=== PATIENT | female | born 1955 | race Caucasian/White ===

== ENCOUNTER → 2016-12-03 | Outpatient (CLI) | payer OTHER ==
--- NOTE | 2016-12-03 15:29 | US ---
EXAMINATION TYPE: US kidneys/renal and bladder DATE OF EXAM: 12/03/2016 COMPARISON: ct CLINICAL HISTORY: R80.9 Positive Urine Microalbumin. EXAM MEASUREMENTS: Right Kidney: 12.1 x 4.2 x 5.2 cm Left Kidney: 11.2 x 5.4 x 5.4 cm Right Kidney: No hydronephrosis or masses seen Left Kidney: No hydronephrosis or masses seen Lobular contour bilaterally , greater on the left. Bladder: wnl Bilateral Jets seen: Yes IMPRESSION: Normal renal ultrasound
== END | disposition home or self-care (01) ==
LOC: RADUSWWP 14:27
PROVIDERS: ATTEND Family Medicine
DX: R80.9 Proteinuria, unspecified (principal)
CPT/HCPCS: 76770

== ENCOUNTER → 2016-12-06 | Outpatient (CLI) | payer OTHER ==
--- NOTE | 2016-12-07 09:38 | MM ---
Reason for exam: screening (asymptomatic). History: Took hormonal contraceptives beginning at age 18. Physical Findings: A clinical breast exam by your physician is recommended on an annual basis and results should be correlated with mammographic findings. MG Screening Mammo w CAD Bilateral CC and MLO view(s) were taken. No prior studies available for comparison. There are scattered fibroglandular densities. Finding: There are typically benign round calcifications in the right breast. Benign small nodularity in the right breast. There is no discrete abnormality. ASSESSMENT: Benign, BI-RAD 2 RECOMMENDATION: Routine screening mammogram of both breasts in 1 year.
== END | disposition home or self-care (01) ==
LOC: RADMAMWWP 12:36
PROVIDERS: ATTEND Family Medicine
DX: Z12.31 Encounter for screening mammogram for malignant neoplasm of breast (principal)

== ENCOUNTER → 2017-12-22 | Outpatient (CLI) | payer OTHER ==
--- NOTE | 2017-12-26 10:41 | MM ---
Reason for exam: screening (asymptomatic). Last mammogram was performed 1 year and 1 month ago. History: Took hormonal contraceptives beginning at age 18. Physical Findings: A clinical breast exam by your physician is recommended on an annual basis and results should be correlated with mammographic findings. MG Screening Mammo w CAD Bilateral CC and MLO view(s) were taken. Prior study comparison: December 06, 2016, bilateral MG screening mammo w CAD. There are scattered fibroglandular densities. There are benign appearing round calcifications bilaterally. There is chronic nodularity in the right breast. There is no discrete abnormality. Benign bilateral axillary lymph nodes. ASSESSMENT: Benign, BI-RAD 2 RECOMMENDATION: Routine screening mammogram of both breasts in 1 year.
== END | disposition home or self-care (01) ==
LOC: RADMAMWWP 09:39
PROVIDERS: ATTEND Family Medicine
DX: Z12.31 Encounter for screening mammogram for malignant neoplasm of breast (principal)
CPT/HCPCS: 77067

== ENCOUNTER 2018-01-27 10:38 | Emergency (ER) | payer OTHER ==
[2018-01-27 10:43] VITALS: TEMP 97.9
[2018-01-27 11:09] LABS: Glucose,Whole Blood 153 mg/dL (75-99)
--- NOTE | 2018-01-27 11:09 | ED ---
General Adult HPI - General Chief complaint: Chest Pain Stated complaint: CHEST PAIN Time Seen by Provider: 01/27/18 10:51 Source: patient, RN notes reviewed, old records reviewed Mode of arrival: wheelchair Limitations: no limitations - History of Present Illness Initial comments: 62-year-old female presenting for evaluation of chest pain and dyspnea. Patient states that she woke with these symptoms, right-sided chest pain which is worse with deep inspiration. Patient describes as a sharp pain. Denies central chest pain. No history of CAD. Patient does have history of CVA with residual right hand numbness. Denies any new focal numbness or weakness today. Denies abdominal pain. She's had some nausea and vomiting. She also states that she's had some mild dyspnea. She has remote history of DVT and PE. She is not currently on anticoagulation, she is on Plavix for history of CVA. - Related Data Home Medications Medication Instructions Recorded Confirmed Aspirin 325 mg PO DAILY 11/15/14 01/27/18 Atorvastatin [Lipitor] 40 mg PO DAILY 11/15/14 01/27/18 Folic Acid 1 mg PO DAILY 11/15/14 01/27/18 Lisinopril 10 mg PO DAILY 11/15/14 01/27/18 metFORMIN HCL [Glucophage] 500 mg PO TID 11/15/14 01/27/18 Clopidogrel [Plavix] 75 mg PO DAILY 01/27/18 01/27/18 Insulin Glargine,Hum.rec.anlog 25 - 30 unit SQ HS 01/27/18 01/27/18 [Basaglar Kwikpen U-100] Latanoprost [Xalatan 0.005%] 1 drop LEFT EYE HS 01/27/18 01/27/18 Nitroglycerin Sl Tabs [Nitrostat] 0.4 mg SUBLINGUAL Q5M PRN 01/27/18 01/27/18 [place]-3 Fatty Acids/Fish Oil [Fish 1 cap PO DAILY 01/27/18 01/27/18 Oil 1,000 mg Softgel] Ubidecarenone [Co Q-10] 100 mg PO DAILY 01/27/18 01/27/18 Vortioxetine Hydrobromide 10 mg PO DAILY 01/27/18 01/27/18 [Trintellix] Allergies Allergy/AdvReac Type Severity Reaction Status Date / Time cephalexin monohydrate Allergy Rash/Hives Verified 01/27/18 11:23 [From Keflex] morphine AdvReac Unknown Verified 01/27/18 11:23 Penicillins AdvReac Nausea & Verified 01/27/18 11:23 Vomiting Review of Systems ROS Statement: Those systems with pertinent positive or pertinent negative responses have been documented in the HPI. ROS Other: All systems not noted in ROS Statement are negative. Past Medical History Past Medical History: CVA/TIA, Diabetes Mellitus, Hypertension, Pulmonary Embolus (PE) Additional Past Medical History / Comment(s): HIGH CHOLESTEROL, pancreatitis History of Any Multi-Drug Resistant Organisms: None Reported Past Surgical History: Hysterectomy Additional Past Surgical History / Comment(s): OVARIAN CYST REMOVED, VEIN STRIPPING Additional Past Anesthesia/Blood Transfusion Reaction / Comment(s): PROBLEMS WAKING UP POST ANESTHESIA Past Psychological History: No Psychological Hx Reported Smoking Status: Former smoker Past Alcohol Use History: None Reported Past Drug Use History: None Reported - Past Family History Mother Family Medical History: Cancer, Diabetes Mellitus Additional Family Medical History / Comment(s): LYMPHOMA Father Family Medical History: Unable to Obtain Sister(s) Family Medical History: Cancer, Diabetes Mellitus Additional Family Medical History / Comment(s): LYMPHOMA Brother(s) Family Medical History: No Reported History Son(s) Family Medical History: No Reported History General Exam Limitations: no limitations General appearance: alert, in no apparent distress Head exam: Present: atraumatic, normocephalic Eye exam: Present: normal appearance, PERRL, EOMI ENT exam: Present: normal exam Neck exam: Present: normal inspection. Absent: tenderness, meningismus Respiratory exam: Present: normal lung sounds bilaterally. Absent: respiratory distress Cardiovascular Exam: Present: regular rate, normal rhythm GI/Abdominal exam: Present: soft. Absent: distended, tenderness Extremities exam: Present: normal inspection, calf tenderness (Bilateral calf tenderness to palpation). Absent: pedal edema Neurological exam: Present: alert, oriented X3, CN II-XII intact, motor sensory deficit (Residual left hand numbness from previous CVA) Psychiatric exam: Present: normal affect, normal mood Skin exam: Present: warm, dry, intact. Absent: cyanosis, diaphoretic Course Vital Signs 01/27/18 01/27/18 10:41 11:10 Temperature 97.9 F Pulse Rate 69 Pulse Rate [ 69 [employer]ice ] Respiratory 18 Rate Blood Pressure 160/83 O2 Sat by Pulse 98 Oximetry EKG Findings - EKG Comments: EKG Findings:: EKG normal sinus rhythm, left axis deviation, rate of 71, DC interval 140, QRS duration 90, QTC [address] segment elevation or depression Medical Decision Making - Medical Decision Making 62-year-old female presenting for evaluation of right-sided chest pain. Pain is pleuritic in nature, worse with deep inspiration and patient does have history of PE. EKG does not show any acute signs of ischemia, pain is atypical and not concerning for ACS. Chest x-ray obtained, negative for acute cardiopulmonary disease, CBC is normal with stable hemoglobin, troponin is negative, CMP within normal limits. CT angiography is obtained given the pleuritic nature and history of PE. This is negative for pulmonary embolism, no acute findings. Patient is reassured. She is offered observation for continued evaluation of her chest pain, she declines. She will take anti-inflammatories at home. She is discharged from the emergency department in stable condition. - Lab Data Result diagrams: 01/27/18 10:40 01/27/18 10:40 Lab Results 01/27/18 01/27/18 01/27/18 Range/Units 10:40 10:40 10:40 WBC 10.7 H (3.8-10.6) k/uL RBC 4.97 (3.80-5.40) m/uL Hgb 14.5 (11.4-16.0) gm/dL Hct 43.9 (34.0-46.0) % MCV 88.3 (80.0-100.0) fL MCH 29.2 (25.0-35.0) pg MCHC 33.1 (31.0-37.0) g/dL RDW 13.5 (11.5-15.5) % Plt Count 325 (150-450) k/uL Neutrophils % 63 % Lymphocytes % 30 % Monocytes % 4 % Eosinophils % 1 % Basophils % 1 % Neutrophils # 6.8 (1.3-7.7) k/uL Lymphocytes # 3.3 (1.0-4.8) k/uL Monocytes # 0.4 (0-1.0) k/uL Eosinophils # 0.1 (0-0.7) k/uL Basophils # 0.1 (0-0.2) k/uL PT (9.0-12.0) sec INR (<1.2) APTT (22.0-30.0) sec Sodium 140 (137-145) mmol/L Potassium 4.7 (3.5-5.1) mmol/L Chloride 106 (98-107) mmol/L Carbon Dioxide 26 (22-30) mmol/L Anion Gap 8 mmol/L BUN 13 (7-17) mg/dL Creatinine 0.61 (0.52-1.04) mg/dL Est GFR (CKD-EPI)AfAm >90 (>60 ml/min/1.73 sqM) Est GFR (CKD-EPI)NonAf >90 (>60 ml/min/1.73 sqM) Glucose 175 H (74-99) mg/dL POC Glucose (mg/dL) (75-99) mg/dL POC Glu Flumer ID Calcium 10.1 (8.4-10.2) mg/dL Magnesium 1.8 (1.6-2.3) mg/dL Total Bilirubin 0.6 (0.2-1.3) mg/dL AST 33 (14-36) U/L ALT 38 (9-52) U/L Alkaline Phosphatase 150 H (38-126) U/L Total Creatine Kinase 48 (30-135) U/L CK-MB (CK-2) 0.3 (0.0-2.4) ng/mL CK-MB (CK-2) Rel Index 0.6 Troponin I <0.012 (0.000-0.034) ng/mL Total Protein 7.8 (6.3-8.2) g/dL Albumin 4.3 (3.5-5.0) g/dL 01/27/18 01/27/18 Range/Units 10:40 10:48 WBC (3.8-10.6) k/uL RBC (3.80-5.40) m/uL Hgb (11.4-16.0) gm/dL Hct (34.0-46.0) % MCV (80.0-100.0) fL MCH (25.0-35.0) pg MCHC (31.0-37.0) g/dL RDW (11.5-15.5) % Plt Count (150-450) k/uL Neutrophils % % Lymphocytes % % Monocytes % % Eosinophils % % Basophils % % Neutrophils # (1.3-7.7) k/uL Lymphocytes # (1.0-4.8) k/uL Monocytes # (0-1.0) k/uL Eosinophils # (0-0.7) k/uL Basophils # (0-0.2) k/uL PT 10.0 (9.0-12.0) sec INR 1.0 (<1.2) APTT 22.6 (22.0-30.0) sec Sodium (137-145) mmol/L Potassium (3.5-5.1) mmol/L Chloride (98-107) mmol/L Carbon Dioxide (22-30) mmol/L Anion Gap mmol/L BUN (7-17) mg/dL Creatinine (0.52-1.04) mg/dL Est GFR (CKD-EPI)AfAm (>60 ml/min/1.73 sqM) Est GFR (CKD-EPI)NonAf (>60 ml/min/1.73 sqM) Glucose (74-99) mg/dL POC Glucose (mg/dL) 153 H (75-99) mg/dL POC Glu Flumer ID Lydia Clemens Calcium (8.4-10.2) mg/dL Magnesium (1.6-2.3) mg/dL Total Bilirubin (0.2-1.3) mg/dL AST (14-36) U/L ALT (9-52) U/L Alkaline Phosphatase (38-126) U/L Total Creatine Kinase (30-135) U/L CK-MB (CK-2) (0.0-2.4) ng/mL CK-MB (CK-2) Rel Index Troponin I (0.000-0.034) ng/mL Total Protein (6.3-8.2) g/dL Albumin (3.5-5.0) g/dL Disposition Clinical Impression: Atypical chest pain Disposition: HOME SELF-CARE Condition: Good Instructions: Chest Pain (ED) Is patient prescribed a controlled substance at d/c from ED?: No Referrals: Mary Ann Winter MD [STAFF PHYSICIAN] - 1-2 days Time of Disposition: 13:11
[2018-01-27 11:37] LABS: Basophils # (A) 0.1 k/uL (0-0.2); Basophils % (A) 1 %; Eosinophils # (A) 0.1 k/uL (0-0.7); Eosinophils % (A) 1 %; HCT 43.9 % (34.0-46.0); HGB 14.5 gm/dL (11.4-16.0); Lymphocytes # (A) 3.3 k/uL (1.0-4.8); Lymphocytes % (A) 30 %; MCH 29.2 pg (25.0-35.0); MCHC 33.1 g/dL (31.0-37.0); MCV 88.3 fL (80.0-100.0); Mean Platelet Volume 7.6; Monocytes # (A) 0.4 k/uL (0-1.0); Monocytes % (A) 4 %; Neutrophils # (A) 6.8 k/uL (1.3-7.7); Neutrophils % (A) 63 %; Platelet Count 325 k/uL (150-450); RBC 4.97 m/uL (3.80-5.40); RDW 13.5 % (11.5-15.5); WBC 10.7 k/uL (3.8-10.6)
[2018-01-27] MEDS ORDERED: HYDROmorphone 0.5 MG/0.5 ML SYRINGE IVP STA (11:38)
[2018-01-27 11:44] LABS: ALT 38 U/L (9-52); AST 33 U/L (14-36); Albumin 4.3 g/dL (3.5-5.0); Alkaline Phosphatase 150 U/L (38-126); Anion Gap 8 mmol/L; Blood Urea Nitrogen 13 mg/dL (7-17); Calcium 10.1 mg/dL (8.4-10.2); Carbon Dioxide 26 mmol/L (22-30); Chloride 106 mmol/L (98-107); Glucose 175 mg/dL (74-99); Magnesium 1.8 mg/dL (1.6-2.3); Potassium 4.7 mmol/L (3.5-5.1); Sodium 140 mmol/L (137-145); Total Bilirubin 0.6 mg/dL (0.2-1.3); Total Protein 7.8 g/dL (6.3-8.2)
[2018-01-27 11:57] LABS: Creatine Kinase 48 U/L (30-135)
[2018-01-27 12:09] LABS: Creatine Kinase MB 0.3 ng/mL (0.0-2.4); Troponin I <0.012 ng/mL (0.000-0.034)
[2018-01-27 12:14] LABS: Partial Thromboplastin Time 22.6 sec (22.0-30.0)
--- NOTE | 2018-01-27 12:20 | XR ---
EXAMINATION TYPE: XR chest 2V DATE OF EXAM: 01/27/2018 COMPARISON: 02/11/2013 HISTORY: Shortness of breath TECHNIQUE: Frontal and lateral views of the chest are obtained. FINDINGS: Scattered senescent parenchymal changes noted. No evidence for infiltrate. No evidence for atelectasis. Heart size is stable. Mediastinal structures are stable and grossly unremarkable. No evidence for hilar prominence. Degenerative changes dorsal spine. IMPRESSION: 1. No evidence for acute pulmonary disease.
--- NOTE | 2018-01-27 12:36 | CT ---
EXAMINATION TYPE: CT angio chest DATE OF EXAM: 01/27/2018 COMPARISON: 10/14/2015 HISTORY: Right chest pain. CT DLP: 325.8 mGycm CONTRAST: CT chest with contrast and 3D reconstruction with MIP imaging is performed with IV Contrast, patient injected with 58 mL of Isovue 370. Contrast-enhanced CT of the chest was performed through the course of the pulmonary arteries with katelin g and mediastinal window settings submitted. 3D reconstruction with MIP imaging was also performed. PULMONARY ARTERIES: The pulmonary arteries and their major tributaries are patent. I do not see reva dence for sizable filling defect to suggest pulmonary embolic process. LUNGS: The lungs are clear and free of infiltrate. No evidence for atelectasis. No pulmonary nodule or mass is detected. No pleural effusion. MEDIASTINUM: Thoracic aorta is of normal caliber,however, evaluation is limited given timing of the contrast bolus. If there is concern for thoracic aortic pathology consider SANTOS. Correlate clinicall y . The heart is not enlarged. No evidence for mediastinal mass. No mediastinal lymph nodes greater than 1cm. HILAR STRUCTURES: No evidence for mass. No hilar lymph nodes greater than 1 cm. UPPER ABDOMEN: No significant abnormality is seen. IMPRESSION: 1. No evidence for Pulmonary embolism at this time.
[2018-01-27 13:05] VITALS: PULSE 65
[2018-01-27 13:06] VITALS: BP 141/75; RESP 16
== END 2018-01-27 13:23 | disposition home or self-care (01) ==
LOC: EC 10:38
DX: R07.89 Other chest pain (principal); R06.00 Dyspnea, unspecified; R11.2 Nausea with vomiting, unspecified; E11.9 Type 2 diabetes mellitus without complications; I10 Essential (primary) hypertension; E78.00 Pure hypercholesterolemia, unspecified; Z86.711 Personal history of pulmonary embolism; Z86.718 Personal history of other venous thrombosis and embolism; Z86.73 Personal history of transient ischemic attack (TIA), and cerebral infarction without residual deficits; Z87.891 Personal history of nicotine dependence; Z79.82 Long term (current) use of aspirin; Z79.02 Long term (current) use of antithrombotics/antiplatelets; Z79.4 Long term (current) use of insulin; Z79.899 Other long term (current) drug therapy; Z88.1 Allergy status to other antibiotic agents; Z88.5 Allergy status to narcotic agent; Z88.0 Allergy status to penicillin; Z53.29 Procedure and treatment not carried out because of patient's decision for other reasons
CPT/HCPCS: 36415; 93005; 80053; 82550; 82553; 83735; 84484; 85025; 85610; 85730; 71046; 71275; 99285; 96374; J1170; Q9967

== ENCOUNTER → 2018-09-20 | Outpatient (CLI) | payer OTHER | END | disposition home or self-care (01) | LOC: LABWHC1 11:18 | PROVIDERS: ATTEND Nurse Practitioner Family | DX: M79.622 Pain in left upper arm (principal); M79.89 Other specified soft tissue disorders; L98.9 Disorder of the skin and subcutaneous tissue, unspecified | CPT/HCPCS: 36415; 82565; 84520 ==

== ENCOUNTER 2018-12-15 09:15 | Observation (INO) | payer OTHER ==
[2018-12-15 09:19] VITALS: TEMP 98.1
[2018-12-15] MEDS ORDERED: ONDANSETRON 4 MG/2 ML VIAL IVP STA (09:48)
[2018-12-15] MEDS ORDERED: LORazepam 2 MG/ML INJ IV STA (09:48)
[2018-12-15] MEDS ORDERED: SODIUM CHLORIDE 0.9% 500 ML 500 ML IV STA (09:48)
--- NOTE | 2018-12-15 09:56 | ED ---
General Adult HPI - General Chief complaint: Shortness of Breath Stated complaint: Weakness Time Seen by Provider: 12/15/18 09:20 Source: patient, family, RN notes reviewed Mode of arrival: ambulatory Limitations: no limitations - History of Present Illness Initial comments: This is a 63-year-old female with past month history significant for stroke. P shirley has some sided residual. Patient comes in this morning because when she woke up she was having dry heaves and shortly thereafter she started getting tingling in her lips on both sides of her face she then became lightheaded and felt like she was breathing fast. So she was brought to the emergency department because she was concerned that she may be having another stroke. Patient denies any new weakness or any areas of actual numbness. Patient denies any chest pain. Patient denies any current difficulty breathing though she continues to breathe fast. Patient denies any abdominal pain but does remain nauseated. Patient has not vomited or had any diarrhea. Patient has had no headache. Patient denies any chest pain or shortness of breath. Patient denies any recent fever chills. - Related Data Home Medications Medication Instructions Recorded Confirmed Aspirin 325 mg PO DAILY 11/15/14 12/15/18 Atorvastatin [Lipitor] 40 mg PO HS 11/15/14 12/15/18 Folic Acid 1 mg PO DAILY 11/15/14 12/15/18 Lisinopril 10 mg PO DAILY 11/15/14 12/15/18 metFORMIN HCL [Glucophage] 500 mg PO TID 11/15/14 12/15/18 Clopidogrel [Plavix] 75 mg PO DAILY 01/27/18 12/15/18 Insulin Glargine,Hum.rec.anlog 25 - 30 unit SQ HS 01/27/18 12/15/18 [Basaglar Kwikpen U-100] Latanoprost [Xalatan 0.005%] 1 drop LEFT EYE HS 01/27/18 12/15/18 Nitroglycerin Sl Tabs [Nitrostat] 0.4 mg SUBLINGUAL Q5M PRN 01/27/18 12/15/18 [place]-3 Fatty Acids/Fish Oil [Fish 1 cap PO DAILY 01/27/18 12/15/18 Oil 1,000 mg Softgel] Ubidecarenone [Co Q-10] 100 mg PO DAILY 01/27/18 12/15/18 Amitriptyline HCl [Elavil] 12.5 mg PO HS 12/15/18 12/15/18 Allergies Allergy/AdvReac Type Severity Reaction Status Date / Time cephalexin monohydrate Allergy Rash/Hives Verified 12/15/18 09:32 [From Keflex] morphine AdvReac Unknown Verified 12/15/18 09:32 Penicillins AdvReac Nausea & Verified 12/15/18 09:32 Vomiting Review of Systems ROS Statement: Those systems with pertinent positive or pertinent negative responses have been documented in the HPI. ROS Other: All systems not noted in ROS Statement are negative. Past Medical History Past Medical History: CVA/TIA, Diabetes Mellitus, Hypertension, Pulmonary E mbolus (PE) Additional Past Medical History / Comment(s): HIGH CHOLESTEROL, pancreatitis History of Any Multi-Drug Resistant Organisms: None Reported Past Surgical History: Hysterectomy Additional Past Surgical History / Comment(s): OVARIAN CYST REMOVED, VEIN STRIPPING Additional Past Anesthesia/Blood Transfusion Reaction / Comment(s): PROBLEMS WAKING UP POST ANESTHESIA Past Psychological History: No Psychological Hx Reported Smoking Status: Former smoker Past Alcohol Use History: None Reported Past Drug Use History: None Reported - Past Family History Mother Family Medical History: Cancer, Diabetes Mellitus Additional Family Medical History / Comment(s): LYMPHOMA Father Family Medical History: Unable to Obtain Sister(s) Family Medical History: Cancer, Diabetes Mellitus Additional Family Medical History / Comment(s): LYMPHOMA Brother(s) Family Medical History: No Reported History Son(s) Family Medical History: No Reported History General Exam - General Exam Comments Initial Comments: GENERAL: Patient is well-developed and well-nourished. Patient is nontoxic and well- hydrated and is in no acute distress. ENT: Neck is soft and supple. No significant lymphadenopathy is noted. Oropharynx is clear. Moist mucous membranes. Neck has full range of motion without eliciting any pain. EYES: The sclera were anicteric and conjunctiva were pink and moist. Extraocular movements were intact and pupils were equal round and reactive to light. Eyelids were unremarkable. PULMONARY: Unlabored respirations. Good breath sounds bilaterally. No audible rales rho nchi or wheezing was noted. CARDIOVASCULAR: There is a regular rate and rhythm without any murmurs gallops or rubs. ABDOMEN: Soft and nontender with normal bowel sounds. No palpable organomegaly was noted. There is no palpable pulsatile mass. SKIN: Skin is clear with no lesions or rashes and otherwise unremarkable. NEUROLOGIC: Patient is alert and oriented x3. Cranial nerves II through XII are grossly intact. Motor and sensory are also intact. Normal speech, volume and content. Symmetrical smile. MUSCULOSKELETAL: Normal extremities with adequate strength and full range of motion. No lower extremity swelling or edema. No calf tenderness. LYMPHATICS: No significant lymphadenopathy is noted PSYCHIATRIC: Normal psychiatric evaluation. Normal interpersonal interactions appears functionally intact in deals appropriately with others. No signs of depression. No signs of anxiety. Limitations: no limitations Course Vital Signs 12/15/18 09:17 Temperature 98.1 F Pulse Rate 84 Respiratory 16 Rate Blood Pressure 199/92 O2 Sat by Pulse 100 Oximetry Medical Decision Making - Medical Decision Making EKG shows sinus rhythm with occasional PVC at 86 bpm NV interval 146 dresses 92 QT interval 390. Patient's EKG shows no ST segment elevation or depression. Chest x-ray shows no acute abnormality CT of the head shows no acute abnormality. I will back into the room she still remained nauseated and was now complaining of some tingling sensation in her left foot. There was no loss of sensation or strength however. - Lab Data Result diagrams: 12/15/18 10:10 12/15/18 10:10 Lab Results 12/15/18 12/15/18 12/15/18 Range/Units 10:10 10:10 10:10 WBC 10.4 (3.8-10.6) k/uL RBC 4.54 (3.80-5.40) m/uL Hgb 13.2 (11.4-16.0) gm/dL Hct 39.7 (34.0-46.0) % MCV 87.5 (80.0-100.0) fL MCH 29.2 (25.0-35.0) pg MCHC 33.3 (31.0-37.0) g/dL RDW 15.2 (11.5-15.5) % Plt Count 358 (150-450) k/uL Neutrophils % 58 % Lymphocytes % 35 % Monocytes % 3 % Eosinophils % 2 % Basophils % 1 % Neutrophils # 6.0 (1.3-7.7) k/uL Lymphocytes # 3.6 (1.0-4.8) k/uL Monocytes # 0.3 (0-1.0) k/uL Eosinophils # 0.2 (0-0.7) k/uL Basophils # 0.1 (0-0.2) k/uL PT 9.8 (9.0-12.0) sec INR 0.9 (<1.2) APTT 23.0 (22.0-30.0) sec Sodium 141 (137-145) mmol/L Potassium 3.9 (3.5-5.1) mmol/L Chloride 108 H (98-107) mmol/L Carbon Dioxide 23 (22-30) mmol/L Anion Gap 10 mmol/L BUN 9 (7-17) mg/dL Creatinine 0.60 (0.52-1.04) mg/dL Est GFR (CKD-EPI)AfAm >90 (>60 ml/min/1.73 sqM) Est GFR (CKD-EPI)NonAf >90 (>60 ml/min/1.73 sqM) Glucose 223 H (74-99) mg/dL Calcium 10.1 (8.4-10.2) mg/dL Total Bilirubin 0.5 (0.2-1.3) mg/dL AST 27 (14-36) U/L ALT 33 (9-52) U/L Alkaline Phosphatase 111 (38-126) U/L Troponin I (0.000-0.034) ng/mL Total Protein 7.6 (6.3-8.2) g/dL Albumin 4.2 (3.5-5.0) g/dL 12/15/18 Range/Units 10:10 WBC (3.8-10.6) k/uL RBC (3.80-5.40) m/uL Hgb (11.4-16.0) gm/dL Hct (34.0-46.0) % MCV (80.0-100.0) fL MCH (25.0-35.0) pg MCHC (31.0-37.0) g/dL RDW (11.5-15.5) % Plt Count (150-450) k/uL Neutrophils % % Lymphocytes % % Monocytes % % Eosinophils % % Basophils % % Neutrophils # (1.3-7.7) k/uL Lymphocytes # (1.0-4.8) k/uL Monocytes # (0-1.0) k/uL Eosinophils # (0-0.7) k/uL Basophils # (0-0.2) k/uL PT (9.0-12.0) sec INR (<1.2) APTT (22.0-30.0) sec Sodium (137-145) mmol/L Potassium (3.5-5.1) mmol/L Chloride (98-107) mmol/L Carbon Dioxide (22-30) mmol/L Anion Gap mmol/L BUN (7-17) mg/dL Creatinine (0.52-1.04) mg/dL Est GFR (CKD-EPI)AfAm (>60 ml/min/1.73 sqM) Est GFR (CKD-EPI)NonAf (>60 ml/min/1.73 sqM) Glucose (74-99) mg/dL Calcium (8.4-10.2) mg/dL Total Bilirubin (0.2-1.3) mg/dL AST (14-36) U/L ALT (9-52) U/L Alkaline Phosphatase (38-126) U/L Troponin I <0.012 (0.000-0.034) ng/mL Total Protein (6.3-8.2) g/dL Albumin (3.5-5.0) g/dL Disposition Clinical Impression: Paresthesias, Nausea Disposition: ADMITTED IP TO THIS HOSP Referrals: Melody Mosley MD [Primary Care Provider] - 1-2 days Time of Disposition: 12:28
[2018-12-15 10:25] LABS: Basophils # (A) 0.1 k/uL (0-0.2); Basophils % (A) 1 %; Eosinophils # (A) 0.2 k/uL (0-0.7); Eosinophils % (A) 2 %; HCT 39.7 % (34.0-46.0); HGB 13.2 gm/dL (11.4-16.0); Lymphocytes # (A) 3.6 k/uL (1.0-4.8); Lymphocytes % (A) 35 %; MCH 29.2 pg (25.0-35.0); MCHC 33.3 g/dL (31.0-37.0); MCV 87.5 fL (80.0-100.0); Monocytes # (A) 0.3 k/uL (0-1.0); Monocytes % (A) 3 %; Neutrophils % (A) 58 %; Platelet Count 358 k/uL (150-450); RBC 4.54 m/uL (3.80-5.40); RDW 15.2 % (11.5-15.5); WBC 10.4 k/uL (3.8-10.6)
[2018-12-15 10:30] LABS: INR 0.9 (<1.2); Prothrombin Time 9.8 sec (9.0-12.0)
[2018-12-15 10:32] LABS: ALT 33 U/L (9-52); AST 27 U/L (14-36); African American GFR (CKD) >90 (>60 ml/min/1.73 sqM); Albumin 4.2 g/dL (3.5-5.0); Alkaline Phosphatase 111 U/L (38-126); Anion Gap 10 mmol/L; Blood Urea Nitrogen 9 mg/dL (7-17); Calcium 10.1 mg/dL (8.4-10.2); Carbon Dioxide 23 mmol/L (22-30); Chloride 108 mmol/L (98-107); Glucose 223 mg/dL (74-99); Potassium 3.9 mmol/L (3.5-5.1); Sodium 141 mmol/L (137-145); Total Bilirubin 0.5 mg/dL (0.2-1.3); Total Protein 7.6 g/dL (6.3-8.2)
--- NOTE | 2018-12-15 10:33 | XR ---
EXAMINATION TYPE: XR chest 2V DATE OF EXAM: 12/15/2018 COMPARISON: 01/19/2018 HISTORY: Altered mental status TECHNIQUE: Frontal and lateral views of the chest are obtained. FINDINGS: There is no focal air space opacity, pleural effusion, or pneumothorax seen. The cardiac silhouette size is within normal limits. The osseous structures are intact. Mild multilevel degener ative changes of the thoracic spine. IMPRESSION: No acute cardiopulmonary process.
--- NOTE | 2018-12-15 10:41 | CT ---
EXAMINATION TYPE: CT brain wo con DATE OF EXAM: 12/15/2018 COMPARISON: CT brain 11/15/2014 HISTORY: Left hand tingling and dizziness, history of stroke, neuro deficits. CT DLP: 1103.4 mGycm Automated exposure control for dose reduction was used. Helical imaging through the brain. FINDINGS: There is no evident hemorrhage or hydrocephalus. Brain density shows a stable appearance, there is so me White matter low-attenuation present in the periventricular location. The calvarium is intact. IMPRESSION: STABLE EXAM, NONSPECIFIC WHITE MATTER DEMYELINATION. NO ACUTE ABNORMALITY EVIDENT. CONSIDER MRI IN DICATED.
[2018-12-15] MEDS ORDERED: ASPIRIN 325 MG TAB PO STA (12:29)
[2018-12-15] MEDS ORDERED: METOCLOPRAMIDE 5 MG/ML 2 ML VIAL IVP STA (12:29)
[2018-12-15 15:12] VITALS: BP 132/68; PULSE 78; RESP 18
[2018-12-16] MEDS ORDERED: ASPIRIN 325 MG TAB PO SCH (09:00)
--- NOTE | 2018-12-22 09:27 | HP ---
HISTORY AND PHYSICAL HISTORY AND PHYSICAL AND DISCHARGE SUMMARY CHIEF COMPLAINTS: Paresthesia, nausea. HISTORY OF PRESENT ILLNESS: This 63-year-old woman with a past medical history of multiple medical problems was admitted with paresthesia and nausea. Patient follows with Dr. Melody Mosley in the outpatient setting, but however before being evaluated, the patient left the hospital AGAINST MEDICAL ADVICE from the ER itself. Please refer to staff notes and ER notes for further information. FINAL DIAGNOSIS: Paresthesia, weakness for evaluation. MMODL / IJN: [id number] /
== END 2018-12-15 13:45 | disposition left against medical advice (07) ==
LOC: EC 09:15 → 3SCARD 12:29
PROVIDERS: ADMIT Hospitalist; ATTEND Hospitalist
DX: R20.2 Paresthesia of skin (principal); R11.0 Nausea; R53.1 Weakness; E11.9 Type 2 diabetes mellitus without complications; E78.00 Pure hypercholesterolemia, unspecified; I10 Essential (primary) hypertension; I49.3 Ventricular premature depolarization; Z79.02 Long term (current) use of antithrombotics/antiplatelets; Z79.82 Long term (current) use of aspirin; Z86.711 Personal history of pulmonary embolism; Z86.73 Personal history of transient ischemic attack (TIA), and cerebral infarction without residual deficits; Z87.891 Personal history of nicotine dependence; Z90.710 Acquired absence of both cervix and uterus; Z80.7 Family history of other malignant neoplasms of lymphoid, hematopoietic and related tissues; Z83.3 Family history of diabetes mellitus
CPT/HCPCS: 96374; 96375; 99285; 36415; 80053; 84484; 85025; 85610; 85730; 71046; 70450; G0378; J2060; J2765; J2405

== ENCOUNTER 2019-02-12 14:06 | Emergency (ER) | payer OTHER ==
[2019-02-12 14:27] VITALS: RESP 18; TEMP 97.9
[2019-02-12] MEDS ORDERED: MORPHINE SULFATE 4 MG/ML SYRINGE IV STA (14:47)
[2019-02-12 15:18] LABS: Basophils # (A) 0.1 k/uL (0-0.2); Basophils % (A) 1 %; Eosinophils # (A) 0.2 k/uL (0-0.7); Eosinophils % (A) 2 %; HCT 39.2 % (34.0-46.0); HGB 13.1 gm/dL (11.4-16.0); Lymphocytes # (A) 3.2 k/uL (1.0-4.8); Lymphocytes % (A) 33 %; MCH 29.9 pg (25.0-35.0); MCHC 33.4 g/dL (31.0-37.0); MCV 89.6 fL (80.0-100.0); Mean Platelet Volume 6.9; Monocytes # (A) 0.5 k/uL (0-1.0); Monocytes % (A) 5 %; Neutrophils # (A) 5.7 k/uL (1.3-7.7); Neutrophils % (A) 58 %; Platelet Count 312 k/uL (150-450); RBC 4.37 m/uL (3.80-5.40); RDW 13.3 % (11.5-15.5); WBC 9.8 k/uL (3.8-10.6)
[2019-02-12 15:24] LABS: Appearance,Urine Clear (Clear); Bilirubin,Urine Negative (Negative); Blood,Urine Negative (Negative); Color,Urine Light Yellow; Glucose,Urine (UA) Negative (Negative); Ketones,Urine Negative (Negative); Leukocyte Esterase,Urine Negative (Negative); Nitrite,Urine Negative (Negative); PH, Urine 7.5 (5.0-8.0); Protein,Urine Negative (Negative); Specific Gravity,Urine 1.011 (1.001-1.035)
[2019-02-12 15:26] LABS: INR 0.9 (<1.2); Prothrombin Time 9.8 sec (9.0-12.0)
[2019-02-12 15:28] LABS: ALT 26 U/L (9-52); AST 23 U/L (14-36); African American GFR (CKD) >90 (>60 ml/min/1.73 sqM); Albumin 4.1 g/dL (3.5-5.0); Alkaline Phosphatase 142 U/L (38-126); Anion Gap 9 mmol/L; Blood Urea Nitrogen 9 mg/dL (7-17); Calcium 9.7 mg/dL (8.4-10.2); Carbon Dioxide 27 mmol/L (22-30); Chloride 104 mmol/L (98-107); Glucose 163 mg/dL (74-99); Sodium 140 mmol/L (137-145); Total Bilirubin 0.2 mg/dL (0.2-1.3); Total Protein 7.3 g/dL (6.3-8.2)
--- NOTE | 2019-02-12 16:11 | CT ---
EXAMINATION TYPE: CT abdomen pelvis w con DATE OF EXAM: 02/12/2019 COMPARISON: 09/13/2014 INDICATION: LLQ pain. DLP: 1602.7 mGycm, Automated exposure control for dose reduction was used. CONTRAST: 100 mL of Isovue 300. Study performed without Oral Contrast TECHNIQUE: Axial images were obtained from above the diaphragm to the pubic rami in the axial plane a t 5 mm thick sections. Reconstructed images are reviewed on the computer in the coronal plane. FINDINGS: Limited CT sections are obtained the lung bases. The lung bases are clear. CT ABDOMEN: Liver: Normal Spleen: Normal Pancreas: Normal Adrenal glands: The adrenal glands are normal. Gallbladder: Normal Kidneys: No masses are evident. No hydronephrosis is present. No cysts are present. Delayed images were obtained through the kidneys, which remain unremarkable. Aorta: Vascular calcification is within the aorta. Inferior vena cava: Normal. CT PELVIS: Loops of bowel within the abdomen and pelvis are normal. Study is performed without oral contrast . Appendix: Identified Urinary bladder: Normal. Genitourinary structures: Uterus and ovaries are not identified. Osseous structures: No suspicious lytic or sclerotic lesions. IMPRESSIONS: 1. No suspicious acute abnormality. No suspicious changes suggest acute diverticulitis. The cecum ma y be a wandering cecum with the cecum currently located in the midabdomen
--- NOTE | 2019-02-12 16:48 | ED ---
Abdominal Pain HPI - General Chief Complaint: Abdominal Pain Stated Complaint: Abd Pain Source: patient Mode of arrival: ambulatory Limitations: no limitations - History of Present Illness Initial Comments: The patient is a 63-year-old female with past medical history of A. fib who presents emergency room with reported abdominal pain. She states that she was straining today to have a bowel movement. She did feel a pop in her anterior abdomen. She then had excruciating pain afterwards. She is on Plavix for previous history of CVAs. She was concerned that she may have "ruptured blood vessel" and therefore she presented to the emergency room for evaluation. Does report to a history of chronic constipation. She does take Zofran and tramadol for left shoulder pain. States when she takes his medications that it does cause her to have hard stools. She denies any black or melanotic stools. Denies diarrhea. Denies any changes in her urination to include dysuria, h ematuria or difficulty voiding. Denies any abnormal vaginal bleeding or discharge. No back or flank pain. No pain into her lower extremity's. No fevers or chills. There are no alleviating, precipitating or modifying factors - Related Data Home Medications Medication Instructions Recorded Confirmed Atorvastatin [Lipitor] 40 mg PO DAILY 11/15/14 02/12/19 metFORMIN HCL [Glucophage] 500 mg PO TID 11/15/14 02/12/19 Clopidogrel [Plavix] 75 mg PO DAILY 01/27/18 02/12/19 Insulin Glargine,Hum.rec.anlog 45 unit SQ HS 01/27/18 02/12/19 [Basaglar Kwikpen U-100] Ubidecarenone [Co Q-10] 200 mg PO DAILY 01/27/18 02/12/19 Aspirin EC [Ecotrin] 325 mg PO DAILY 02/12/19 02/12/19 Folic Acid 0.2 mg PO DAILY 02/12/19 02/12/19 Allergies Allergy/AdvReac Type Severity Reaction Status Date / Time cephalexin monohydrate Allergy Rash/Hives Verified 02/12/19 14:37 [From Keflex] morphine Allergy Rash/Hives Verified 02/12/19 14:37 Penicillins Allergy Rash/Hives Verified 02/12/19 14:37 Review of Systems ROS Statement: Those systems with pertinent positive or pertinent negative responses have been documented in the HPI. ROS Other: All systems not noted in ROS Statement are negative. Past Medical History Past Medical History: CVA/TIA, Diabetes Mellitus, Hypertension, Pulmonary Embolus (PE) Additional Past Medical History / Comment(s): HIGH CHOLESTEROL, pancreatitis History of Any Multi-Drug Resistant Organisms: None Reported Past Surgical History: Hysterectomy Additional Past Surgical History / Comment(s): OVARIAN CYST REMOVED, VEIN STRIPPING Additional Past Anesthesia/Blood Transfusion Reaction / Comment(s): PROBLEMS WAKING UP POST ANESTHESIA Past Psychological History: No Psychological Hx Reported Smoking Status: Former smoker Past Alcohol Use History: None Reported Past Drug Use History: None Reported - Past Family History Mother Family Medical History: Cancer, Diabetes Mellitus Additional Family Medical History / Comment(s): LYMPHOMA Father Family Medical History: Unable to Obtain Sister(s) Family Medical History: Cancer, Diabetes Mellitus Additional Family Medical History / Comment(s): LYMPHOMA Brother(s) Family Medical History: No Reported History Son(s) Family Medical History: No Reported History General Exam Limitations: no limitations Course Vital Signs 02/12/19 02/12/19 14:22 17:19 Temperature 97.9 F 97.9 F Pulse Rate 73 76 Respiratory 18 18 Rate Blood Pressure 145/72 114/56 O2 Sat by Pulse 99 98 Oximetry Medical Decision Making - Medical Decision Making Upon arrival the patient is placed into room 8. A thorough history and physical exam was performed. Peripheral IV is established. Laboratory studies were conducted the patient was sent for a CT of her abdomen and pelvis. Laboratory studies are unremarkable. CT of abdomen and pelvis demonstrates no acute findings. Urinalysis is clean. I did discuss these results with the patient. She will be discharged home at this time. She is to take a stool softener as needed for constipation. She is to follow up with her primary care physician within 2-4 days. If she has any new or worsening symptoms she should return to the emergency room. The patient was discharged home in stable condition - Lab Data Result diagrams: 02/12/19 15:05 02/12/19 15:05 Lab Results 02/12/19 02/12/19 02/12/19 Range/Units 15:05 15:05 15:05 WBC 9.8 (3.8-10.6) k/uL RBC 4.37 (3.80-5.40) m/uL Hgb 13.1 (11.4-16.0) gm/dL Hct 39.2 (34.0-46.0) % MCV 89.6 (80.0-100.0) fL MCH 29.9 (25.0-35.0) pg MCHC 33.4 (31.0-37.0) g/dL RDW 13.3 (11.5-15.5) % Plt Count 312 (150-450) k/uL Neutrophils % 58 % Lymphocytes % 33 % Monocytes % 5 % Eosinophils % 2 % Basophils % 1 % Neutrophils # 5.7 (1.3-7.7) k/uL Lymphocytes # 3.2 (1.0-4.8) k/uL Monocytes # 0.5 (0-1.0) k/uL Eosinophils # 0.2 (0-0.7) k/uL Basophils # 0.1 (0-0.2) k/uL PT (9.0-12.0) sec INR (<1.2) Sodium 140 (137-145) mmol/L Potassium 4.0 (3.5-5.1) mmol/L Chloride 104 (98-107) mmol/L Carbon Dioxide 27 (22-30) mmol/L Anion Gap 9 mmol/L BUN 9 (7-17) mg/dL Creatinine 0.60 (0.52-1.04) mg/dL Est GFR (CKD-EPI)AfAm >90 (>60 ml/min/1.73 sqM) Est GFR (CKD-EPI)NonAf >90 (>60 ml/min/1.73 sqM) Glucose 163 H (74-99) mg/dL Plasma Lactic Acid Sloan (0.7-2.0) mmol/L Calcium 9.7 (8.4-10.2) mg/dL Total Bilirubin 0.2 (0.2-1.3) mg/dL AST 23 (14-36) U/L ALT 26 (9-52) U/L Alkaline Phosphatase 142 H (38-126) U/L Total Protein 7.3 (6.3-8.2) g/dL Albumin 4.1 (3.5-5.0) g/dL Lipase 247 (23-300) U/L Urine Color Light Yellow Urine Appearance Clear (Clear) Urine pH 7.5 (5.0-8.0) Ur Specific [place] 1.011 (1.001-1.035) Urine Protein Negative (Negative) Urine Glucose (UA) Negative (Negative) Urine Ketones Negative (Negative) Urine Blood Negative (Negative) Urine Nitrite Negative (Negative) Urine Bilirubin Negative (Negative) Urine Urobilinogen 2.0 (<2.0) mg/dL Ur Leukocyte Esterase Negative (Negative) 02/12/19 02/12/19 Range/Units 15:05 15:05 WBC (3.8-10.6) k/uL RBC (3.80-5.40) m/uL Hgb (11.4-16.0) gm/dL Hct (34.0-46.0) % MCV (80.0-100.0) fL MCH (25.0-35.0) pg MCHC (31.0-37.0) g/dL RDW (11.5-15.5) % Plt Count (150-450) k/uL Neutrophils % % Lymphocytes % % Monocytes % % Eosinophils % % Basophils % % Neutrophils # (1.3-7.7) k/uL Lymphocytes # (1.0-4.8) k/uL Monocytes # (0-1.0) k/uL Eosinophils # (0-0.7) k/uL Basophils # (0-0.2) k/uL PT 9.8 (9.0-12.0) sec INR 0.9 (<1.2) Sodium (137-145) mmol/L Potassium (3.5-5.1) mmol/L Chloride (98-107) mmol/L Carbon Dioxide (22-30) mmol/L Anion Gap mmol/L BUN (7-17) mg/dL Creatinine (0.52-1.04) mg/dL Est GFR (CKD-EPI)AfAm (>60 ml/min/1.73 sqM) Est GFR (CKD-EPI)NonAf (>60 ml/min/1.73 sqM) Glucose (74-99) mg/dL Plasma Lactic Acid Sloan 1.6 (0.7-2.0) mmol/L Calcium (8.4-10.2) mg/dL Total Bilirubin (0.2-1.3) mg/dL AST (14-36) U/L ALT (9-52) U/L Alkaline Phosphatase (38-126) U/L Total Protein (6.3-8.2) g/dL Albumin (3.5-5.0) g/dL Lipase (23-300) U/L Urine Color Urine Appearance (Clear) Urine pH (5.0-8.0) Ur Specific [place] (1.001-1.035) Urine Protein (Negative) Urine Glucose (UA) (Negative) Urine Ketones (Negative) Urine Blood (Negative) Urine Nitrite (Negative) Urine Bilirubin (Negative) Urine Urobilinogen (<2.0) mg/dL Ur Leukocyte Esterase (Negative) - EKG Data EKG Comments: EKG demonstrates a sinus rhythm with frequent premature ventricular contacts as. Rate of 85. AL interval 146. QRS 86. QTC 43. No acute ST segment elevations or depressions concerning for ischemic changes Disposition Clinical Impression: Abdominal wall strain Disposition: HOME SELF-CARE Condition: Stable Instructions (If sedation given, give patient instructions): Musculoskeletal Pain (ED) Additional Instructions: Please follow up with your primary care doctor in 2-4 days. Return to the emergency room for any new or worsening symptoms Is patient prescribed a controlled substance at d/c from ED?: No Referrals: Rafael Amado MD [Primary Care Provider] - 1-2 days Time of Disposition: 16:47
[2019-02-12 17:20] VITALS: BP 114/56; PULSE 76
== END 2019-02-12 17:20 | disposition home or self-care (01) ==
LOC: EC 14:06
DX: S39.011A Strain of muscle, fascia and tendon of abdomen, initial encounter (principal); K59.00 Constipation, unspecified; E11.9 Type 2 diabetes mellitus without complications; E78.00 Pure hypercholesterolemia, unspecified; Z86.711 Personal history of pulmonary embolism; Z86.73 Personal history of transient ischemic attack (TIA), and cerebral infarction without residual deficits; Z87.19 Personal history of other diseases of the digestive system; Z87.891 Personal history of nicotine dependence; Z90.710 Acquired absence of both cervix and uterus; Z98.890 Other specified postprocedural states; Z79.02 Long term (current) use of antithrombotics/antiplatelets; Z79.4 Long term (current) use of insulin; Z79.82 Long term (current) use of aspirin; Z79.899 Other long term (current) drug therapy; Z88.0 Allergy status to penicillin; Z88.1 Allergy status to other antibiotic agents; Z88.5 Allergy status to narcotic agent; X50.9XXA Other and unspecified overexertion or strenuous movements or postures, initial encounter; Y93.89 Activity, other specified
CPT/HCPCS: 36415; 93005; 80053; 83605; 83690; 85025; 85610; 81003; 74177; 99284; 96374; J2270; Q9967

== ENCOUNTER → 2019-03-01 | Outpatient (CLI) | payer OTHER ==
--- NOTE | 2019-03-02 01:14 | MR ---
EXAMINATION TYPE: MR cervical spine wo con DATE OF EXAM: 03/01/2019 COMPARISON: None HISTORY: Deg Disc Disease / Neck Pain TECHNIQUE: Multiplanar, multisequence images of the cervical spine were acquired. Cervical vertebra have normal alignment. There is some degenerative disc space narrowing at C5-6 C6-7 . There is slight narrowing of the other cervical disc spaces. There is no compression fracture. Ther e are small posterior disc bulging and herniation at C5-6. There is developmentally small spinal janet l at C4 C5 C6 levels. There is a mild posterior disc herniation at C6-7. Spinal canal measures 7 mm a t C5-6 and C6-7. Cervical spinal cord shows no edema. Brainstem is intact. Posterior elements are int act. There is no cervical paraspinal mass. 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 No cor d edema. No fracture. Minimal disc bulging also at C4-5 without significant impingement on the canal.
== END | disposition home or self-care (01) ==
LOC: RADMRIMAIN 15:51
PROVIDERS: ATTEND Internal Medicine
DX: M48.02 Spinal stenosis, cervical region (principal); M50.221 Other cervical disc displacement at C4-C5 level; M47.812 Spondylosis without myelopathy or radiculopathy, cervical region
CPT/HCPCS: 72141

== ENCOUNTER 2022-11-10 14:52 | Emergency (ER) | payer MEDICARE, OTHER ==
[2022-11-10 15:03] VITALS: TEMP 98
[2022-11-10 15:05] LABS: Glucose,Whole Blood 116 mg/dL (70-110)
--- NOTE | 2022-11-10 15:48 | ED ---
Dizziness HPI - General Source: patient, RN notes reviewed Mode of arrival: ambulatory Limitations: no limitations <Lyssa Blandon - Last Filed: 11/10/22 15:48> <Allan Lugo - Last Filed: 11/10/22 20:08> - General Chief Complaint: Dizziness Stated Complaint: Dizziness Time Seen by Provider: 11/10/22 15:46 - History of Present Illness Initial Comments: Patient is a 67 year old who presents to the emergency department for dizziness. Patient reports intermittent room spinning and lightheadedness for the past 2 w eeks. No chest pain, shortness of breath, vomiting. No history of syncope. Patient recently moved to the area she was prescribed Meclizine from PCP without improvement. She does admit to intermittent episodes of hypoglycemia recently. (Lyssa Blandon) I agree with the above the patient does state that symptoms have been going on for about 3 weeks now she does have a history of vertigo in the past she was started on Ozempic when she was living in [place] she is just moved up here from [place]. She states that she's been having some trouble with blood sugar dropping. She'll have symptoms of feeling lightheaded dizzy and sweaty she felt that today her sugar was 57 upon evaluation. She states the dizziness has also recurred she was on meclizine and has not been helping. It he gone away for couple days and then recurred. No trauma reported.. (Allan Lugo) - Related Data Home Medications Medication Instructions Recorded Confirmed Atorvastatin [Lipitor] 40 mg PO DAILY 11/15/14 02/12/19 metFORMIN HCL [Glucophage] 500 mg PO TID 11/15/14 02/12/19 Clopidogrel [Plavix] 75 mg PO DAILY 01/27/18 02/12/19 Insulin Glargine,Hum.rec.anlog 45 unit SQ HS 01/27/18 02/12/19 [Basaglar Kwikpen U-100] Ubidecarenone [Co Q-10] 200 mg PO DAILY 01/27/18 02/12/19 Aspirin EC [Ecotrin] 325 mg PO DAILY 02/12/19 02/12/19 Folic Acid 0.2 mg PO DAILY 02/12/19 02/12/19 Allergies Allergy/AdvReac Type Severity Reaction Status Date / Time cephalexin monohydrate Allergy Rash/Hives Verified 11/10/22 15:03 [From Keflex] morphine Allergy Rash/Hives Verified 11/10/22 15:03 Penicillins Allergy Rash/Hives Verified 11/10/22 15:03 Review of Systems ROS Other: All systems not noted in ROS Statement are negative. <Lyssa Blandon - Last Filed: 11/10/22 15:48> ROS Other: All systems not noted in ROS Statement are negative. <Allan Lugo - Last Filed: 11/10/22 20:08> ROS Statement: Those systems with pertinent positive or pertinent negative responses have been documented in the HPI. Past Medical History Past Medical History: CVA/TIA, Diabetes Mellitus, Hypertension, Pulmonary Embolus (PE) Additional Past Medical History / Comment(s): HIGH CHOLESTEROL, pancreatitis History of Any Multi-Drug Resistant Organisms: None Reported Past Surgical History: Hysterectomy Additional Past Surgical History / Comment(s): OVARIAN CYST REMOVED, VEIN STRIPPING. partial hysterectomy. Additional Past Anesthesia/Blood Transfusion Reaction / Comment(s): PROBLEMS WAKING UP POST ANESTHESIA Past Psychological History: No Psychological Hx Reported Smoking Status: Never smoker Past Alcohol Use History: None Reported Past Drug Use History: None Reported - Past Family History Mother Family Medical History: Cancer, Diabetes Mellitus Additional Family Medical History / Comment(s): LYMPHOMA Father Family Medical History: Unable to Obtain Sister(s) Family Medical History: Cancer, Diabetes Mellitus Additional Family Medical History / Comment(s): LYMPHOMA Brother(s) Family Medical History: No Reported History Son(s) Family Medical History: No Reported History <Lyssa Blandon - Last Filed: 11/10/22 15:48> General Exam Limitations: no limitations <Lyssa Blandon - Last Filed: 11/10/22 15:48> General appearance: alert, in no apparent distress Head exam: Present: atraumatic, normocephalic, normal inspection Eye exam: Present: normal appearance, PERRL, EOMI. Absent: scleral icterus, conjunctival injection, periorbital swelling ENT exam: Present: normal exam, mucous membranes moist Neck exam: Present: normal inspection, full ROM, other (No stridor or bruits). Absent: tenderness, meningismus, lymphadenopathy Respiratory exam: Present: normal lung sounds bilaterally. Absent: respiratory distress, wheezes, rales, rhonchi, stridor Cardiovascular Exam: Present: regular rate, normal rhythm, normal heart sounds. Absent: systolic murmur, diastolic murmur, rubs, gallop, clicks GI/Abdominal exam: Present: soft, normal bowel sounds. Absent: distended, tenderness, guarding, rebound, rigid, bruit, pulsatile mass Extremities exam: Present: normal inspection, full ROM, normal capillary refill. Absent: tenderness, pedal edema, joint swelling, calf tenderness Back exam: Present: normal inspection Neurological exam: Present: alert, oriented X3, CN II-XII intact Psychiatric exam: Present: normal affect, normal mood Skin exam: Present: warm, dry, intact, normal color. Absent: rash <Allan Lugo - Last Filed: 11/10/22 20:08> - General Exam Comments Initial Comments: Visual Physical Exam Vital signs reviewed General: Well-appearing, nontoxic, no acute distress. Head: Normocephalic, atraumatic Eyes: PERRLA, EOMI ENT: Airway patent Chest: Nonlabored breathing Skin: No visual rash, normal skin tone Neuro: Alert and oriented 3 Musculoskeletal: No gross abnormalities (Lyssa Blandon) This is a well-developed well-nourished awake alert oriented 4 female (Allan Lugo) Course Vital Signs 11/10/22 11/10/22 11/10/22 14:54 17:47 19:06 Temperature 98.0 F Pulse Rate 96 77 80 Respiratory 18 16 16 Rate Blood Pressure 139/69 143/91 143/91 O2 Sat by Pulse 100 97 96 Oximetry EKG Findings - EKG Results: EKG: interpreted by ERMD (EKG interpreted by me evidence of sinus rhythm with unifocal PVCs rate 81. Interval 148 QRS duration 98 QT since QTC 380/417 left exodeviation nonspecific anterior configuration) <Allan Lugo - Last Filed: 11/10/22 20:08> Medical Decision Making - Lab Data Result diagrams: 11/10/22 16:48 11/10/22 16:48 <Allan Lugo - Last Filed: 11/10/22 20:08> - Medical Decision Making I did discuss the findings with patient and her . I did recommend admission as the patient seems to have progressing symptoms she does not want to stay at this time she will instead follow up outpatient. Planned already. We did discuss cautioned the care with her blood sugar is far as no driving/machinery operation. She will return if needed.Was pt. sent in by a medical professional or institution (KAMINI Barrientos, OCCUPATIONAL THERAPY PROFESSOR, urgent care, hospital, or intermediate...) When possible be specific @ -No Did you speak to anyone other than the patient for history (EMS, parent, family, police, friend...)? What history was obtained from this source @ -No Did you review nursing and triage notes (agree or disagree)? Why? @ -I reviewed and agree with nursing and triage notes Were old charts reviewed (outside hosp., previous admission, EMS record, old EKG, old radiological studies, urgent care reports/EKG's, intermediate records)? Report findings @ -No old charts were reviewed Differential Diagnosis (chest pain, altered mental status, abdominal pain women, abdominal pain men, vaginal bleeding, weakness, fever, dyspnea, syncope, headache, dizziness, GI bleed, back pain, seizure, CVA, palpatations, mental health, musculoskeletal)? @ -Vertigo, medication induced hypoglycemia EKG interpreted by me (3pts min.). @ -EKG sinus rhythm with frequent unifocal PVCs rate 81 appear interval 140 QRS duration 90 QT since QTC 380/417] X-rays interpreted by me (1pt min.). @ -X-ray interpreted by me negative CT interpreted by me (1pt min.). @ -CT interpreted by me negative for acute process U/S interpreted by me (1pt. min.). @ -None done What testing was considered but not performed or refused? (CT, X-rays, U/S, labs)? Why? @ -None What meds were considered but not given or refused? Why? @ -None Did you discuss the management of the patient with other professionals (professionals i.e. KAMINI Barrientos, OCCUPATIONAL THERAPY PROFESSOR, lab, RT, psych nurse, social work instructor, emission technician, teacher, investigation officer, pillowcase maker)? Give summary @ -Initially with [facility] the patient later refused admission Was smoking cessation discussed for >3mins.? @ -No Was critical care preformed (if so, how long)? @ -No Were there social determinants of health that impacted care today? How? (Homelessness, low income, unemployed, alcoholism, drug addiction, transportation, low edu. Level, literacy, decrease access to med. care, [facility], rehab)? @ -No Was there de-escalation of care discussed even if they declined (Discuss DNR or withdrawal of care, Hospice)? DNR status @ -No What co-morbidities impacted this encounter? (DM, HTN, Smoking, COPD, CAD, Cancer, CVA, ARF, Chemo, Hep., AIDS, mental health diagnosis, sleep apnea, morbid obesity)? @ -History of vertigo, history of diabetes Was patient admitted / discharged? Hospital course, mention meds given and route, prescriptions, significant lab abnormalities, going to OR and other pertinent info. @ -Patient chose to be discharged and will follow palpation Undiagnosed new problem with uncertain prognosis? @ -No Drug Therapy requiring intensive monitoring for toxicity (Heparin, Nitro, Insulin, Cardizem)? @ -No Were any procedures done? @ -No Diagnosis/symptom? @ -Vertigo, hypoglycemic episode Acute, or Chronic, or Acute on Chronic? @ -Acute on chronic Uncomplicated (without systemic symptoms) or Complicated (systemic symptoms)? @ -default Side effects of treatment? @ -No Exacerbation, Progression, or Severe Exacerbation? @ -Exacerbation Poses a threat to life or bodily function? How? (Chest pain, [place], [place], pneumonia, PE, COPD, DKA, ARF, appy, cholecystitis, CVA, Diverticulitis, Homicidal, Suicidal, threat to staff... and all critical care pts) @ -No (Allan Lugo) - Lab Data Lab Results 11/10/22 11/10/22 11/10/22 Range/Units 14:58 16:48 16:48 WBC 5.5 (3.8-10.6) k/uL RBC 5.71 H (3.80-5.40) m/uL Hgb 17.0 H (11.4-16.0) gm/dL Hct 52.4 H (34.0-46.0) % MCV 91.7 (80.0-100.0) fL MCH 29.7 (25.0-35.0) pg MCHC 32.5 (31.0-37.0) g/dL RDW 13.9 (11.5-15.5) % Plt Count 178 (150-450) k/uL MPV 7.6 Neutrophils % 61 % Lymphocytes % 32 % Monocytes % 4 % Eosinophils % 2 % Basophils % 0 % Neutrophils # 3.4 (1.3-7.7) k/uL Lymphocytes # 1.8 (1.0-4.8) k/uL Monocytes # 0.2 (0-1.0) k/uL Eosinophils # 0.1 (0-0.7) k/uL Basophils # 0.0 (0-0.2) k/uL PT (9.0-12.0) sec INR (<1.2) APTT (22.0-30.0) sec D-Dimer (<0.60) mg/L FEU Sodium (137-145) mmol/L Potassium (3.5-5.1) mmol/L Chloride (98-107) mmol/L Carbon Dioxide (22-30) mmol/L Anion Gap mmol/L BUN (7-17) mg/dL Creatinine (0.52-1.04) mg/dL Est GFR (CKD-EPI)AfAm (>60 ml/min/1.73 sqM) Est GFR (CKD-EPI)NonAf (>60 ml/min/1.73 sqM) Glucose (74-99) mg/dL POC Glucose (mg/dL) 116 H (70-110) mg/dL POC Glu Wood Pole Treater ID Zuleta, [place] Calcium (8.4-10.2) mg/dL Magnesium (1.6-2.3) mg/dL Total Bilirubin (0.2-1.3) mg/dL AST (14-36) U/L ALT (4-34) U/L Alkaline Phosphatase (38-126) U/L Troponin I (0.000-0.034) ng/mL Total Protein (6.3-8.2) g/dL Albumin (3.5-5.0) g/dL Urine Color Yellow Urine Appearance Clear (Clear) Urine pH 5.5 (5.0-8.0) Ur Specific [place] 1.019 (1.001-1.035) Urine Protein Trace H (Negative) Urine Glucose (UA) Negative (Negative) Urine Ketones Negative (Negative) Urine Blood Negative (Negative) Urine Nitrite Negative (Negative) Urine Bilirubin Negative (Negative) Urine Urobilinogen <2.0 (<2.0) mg/dL Ur Leukocyte Esterase Small H (Negative) Urine RBC <1 (0-5) /hpf Urine WBC 5 (0-5) /hpf Ur Squamous Epith Cells 3 (0-4) /hpf Urine Bacteria Few H (None) /hpf Urine Mucus Moderate H (None) /hpf 11/10/22 11/10/22 11/10/22 Range/Units 16:48 16:48 16:48 WBC (3.8-10.6) k/uL RBC (3.80-5.40) m/uL Hgb (11.4-16.0) gm/dL Hct (34.0-46.0) % MCV (80.0-100.0) fL MCH (25.0-35.0) pg MCHC (31.0-37.0) g/dL RDW (11.5-15.5) % Plt Count (150-450) k/uL MPV Neutrophils % % Lymphocytes % % Monocytes % % Eosinophils % % Basophils % % Neutrophils # (1.3-7.7) k/uL Lymphocytes # (1.0-4.8) k/uL Monocytes # (0-1.0) k/uL Eosinophils # (0-0.7) k/uL Basophils # (0-0.2) k/uL PT 10.2 (9.0-12.0) sec INR 1.0 (<1.2) APTT 23.0 (22.0-30.0) sec D-Dimer (<0.60) mg/L FEU Sodium 140 (137-145) mmol/L Potassium 4.2 (3.5-5.1) mmol/L Chloride 107 (98-107) mmol/L Carbon Dioxide 26 (22-30) mmol/L Anion Gap 7 mmol/L BUN 13 (7-17) mg/dL Creatinine 0.74 (0.52-1.04) mg/dL Est GFR (CKD-EPI)AfAm >90 (>60 ml/min/1.73 sqM) Est GFR (CKD-EPI)NonAf 86 (>60 ml/min/1.73 sqM) Glucose 92 (74-99) mg/dL POC Glucose (mg/dL) (70-110) mg/dL POC Glu [place] Treater ID Calcium 9.4 (8.4-10.2) mg/dL Magnesium (1.6-2.3) mg/dL Total Bilirubin 0.2 (0.2-1.3) mg/dL AST 35 (14-36) U/L ALT 46 H (4-34) U/L Alkaline Phosphatase 106 (38-126) U/L Troponin I <0.012 (0.000-0.034) ng/mL Total Protein 6.9 (6.3-8.2) g/dL Albumin 3.9 (3.5-5.0) g/dL Urine Color Urine Appearance (Clear) Urine pH (5.0-8.0) Ur Specific [place] (1.001-1.035) Urine Protein (Negative) Urine Glucose (UA) (Negative) Urine Ketones (Negative) Urine Blood (Negative) Urine Nitrite (Negative) Urine Bilirubin (Negative) Urine Urobilinogen (<2.0) mg/dL Ur Leukocyte Esterase (Negative) Urine RBC (0-5) /hpf Urine WBC (0-5) /hpf Ur Squamous Epith Cells (0-4) /hpf Urine Bacteria (None) /hpf Urine Mucus (None) /hpf 11/10/22 11/10/22 Range/Units 18:06 18:06 WBC (3.8-10.6) k/uL RBC (3.80-5.40) m/uL Hgb (11.4-16.0) gm/dL Hct (34.0-46.0) % MCV (80.0-100.0) fL MCH (25.0-35.0) pg MCHC (31.0-37.0) g/dL RDW (11.5-15.5) % Plt Count (150-450) k/uL MPV Neutrophils % % Lymphocytes % % Monocytes % % Eosinophils % % Basophils % % Neutrophils # (1.3-7.7) k/uL Lymphocytes # (1.0-4.8) k/uL Monocytes # (0-1.0) k/uL Eosinophils # (0-0.7) k/uL Basophils # (0-0.2) k/uL PT (9.0-12.0) sec INR (<1.2) APTT (22.0-30.0) sec D-Dimer 0.61 H (<0.60) mg/L FEU Sodium (137-145) mmol/L Potassium (3.5-5.1) mmol/L Chloride (98-107) mmol/L Carbon Dioxide (22-30) mmol/L Anion Gap mmol/L BUN (7-17) mg/dL Creatinine (0.52-1.04) mg/dL Est GFR (CKD-EPI)AfAm (>60 ml/min/1.73 sqM) Est GFR (CKD-EPI)NonAf (>60 ml/min/1.73 sqM) Glucose (74-99) mg/dL POC Glucose (mg/dL) (70-110) mg/dL POC Glu [place] Treater ID Calcium (8.4-10.2) mg/dL Magnesium 2.0 (1.6-2.3) mg/dL Total Bilirubin (0.2-1.3) mg/dL AST (14-36) U/L ALT (4-34) U/L Alkaline Phosphatase (38-126) U/L Troponin I (0.000-0.034) ng/mL Total Protein (6.3-8.2) g/dL Albumin (3.5-5.0) g/dL Urine Color Urine Appearance (Clear) Urine pH (5.0-8.0) Ur Specific [place] (1.001-1.035) Urine Protein (Negative) Urine Glucose (UA) (Negative) Urine Ketones (Negative) Urine Blood (Negative) Urine Nitrite (Negative) Urine Bilirubin (Negative) Urine Urobilinogen (<2.0) mg/dL Ur Leukocyte Esterase (Negative) Urine RBC (0-5) /hpf Urine WBC (0-5) /hpf Ur Squamous Epith Cells (0-4) /hpf Urine Bacteria (None) /hpf Urine Mucus (None) /hpf - Radiology Data Interpreted by me: (Interpreted by me CT negative for acute processes as well as chest x-ray. (Allan Lugo) Disposition <Lyssa Blandon - Last Filed: 11/10/22 15:48> Is patient prescribed a controlled substance at d/c from ED?: No Decision Date: 11/10/22 Decision Time: 20:07 <Allan Lugo - Last Filed: 11/10/22 20:08> Clinical Impression: Dizziness, Hypoglycemic episode in patient with diabetes mellitus Disposition: HOME SELF-CARE Condition: Stable Instructions (If sedation given, give patient instructions): Hypoglycemia in a Person with Diabetes (ED), What to Do if Your Blood Sugar is Low (ED) Referrals: None,Stated [Primary Care Provider] - 1-2 days
--- NOTE | 2022-11-10 16:31 | XR ---
EXAMINATION TYPE: XR chest 2V DATE OF EXAM: 11/10/2022 4:26 PM COMPARISON: Chest radiographs from 12/15/2018 TECHNIQUE: XR chest 2V Frontal and lateral views of the chest. CLINICAL INDICATION:Female, 67 years old with history of dizziness; FINDINGS: Lungs/Pleura: There is no evidence of pleural effusion, focal consolidation, or pneumothorax. Pulmonary vascularity: Unremarkable. Heart/mediastinum: Cardiomediastinal silhouette is unremarkable. Musculoskeletal: No acute osseous pathology. IMPRESSION: No acute cardiopulmonary disease/process.
[2022-11-10 17:13] LABS: Appearance,Urine Clear (Clear); Bacteria,Urine Few /hpf; Bilirubin,Urine Negative (Negative); Blood,Urine Negative (Negative); Color,Urine Yellow; Glucose,Urine (UA) Negative (Negative); Ketones,Urine Negative (Negative); Leukocyte Esterase,Urine Small (Negative); Mucus,Urine Moderate /hpf; Nitrite,Urine Negative (Negative); PH, Urine 5.5 (5.0-8.0); Protein,Urine Trace (Negative); RBC,Urine <1 /hpf (0-5); Specific Gravity,Urine 1.019 (1.001-1.035); Squamous Epithelial Cell,Urine 3 /hpf (0-4); Urobilinogen,Urine <2.0 mg/dL (<2.0); WBC,Urine 5 /hpf (0-5)
[2022-11-10 17:27] LABS: Prothrombin Time 10.2 sec (9.0-12.0)
[2022-11-10 17:29] LABS: Basophils % (A) 0 %; Eosinophils # (A) 0.1 k/uL (0-0.7); Eosinophils % (A) 2 %; HCT 52.4 % (34.0-46.0); Lymphocytes # (A) 1.8 k/uL (1.0-4.8); Lymphocytes % (A) 32 %; MCH 29.7 pg (25.0-35.0); MCHC 32.5 g/dL (31.0-37.0); MCV 91.7 fL (80.0-100.0); Mean Platelet Volume 7.6; Monocytes # (A) 0.2 k/uL (0-1.0); Monocytes % (A) 4 %; Neutrophils # (A) 3.4 k/uL (1.3-7.7); Neutrophils % (A) 61 %; Platelet Count 178 k/uL (150-450); RBC 5.71 m/uL (3.80-5.40); RDW 13.9 % (11.5-15.5); WBC 5.5 k/uL (3.8-10.6)
[2022-11-10 17:31] LABS: ALT 46 U/L (4-34); AST 35 U/L (14-36); African American GFR (CKD) >90 (>60 ml/min/1.73 sqM); Albumin 3.9 g/dL (3.5-5.0); Alkaline Phosphatase 106 U/L (38-126); Anion Gap 7 mmol/L; Blood Urea Nitrogen 13 mg/dL (7-17); Calcium 9.4 mg/dL (8.4-10.2); Carbon Dioxide 26 mmol/L (22-30); Chloride 107 mmol/L (98-107); Glucose 92 mg/dL (74-99); Non-African American GFR(CKD) 86 (>60 ml/min/1.73 sqM); Potassium 4.2 mmol/L (3.5-5.1); Sodium 140 mmol/L (137-145); Total Bilirubin 0.2 mg/dL (0.2-1.3); Total Protein 6.9 g/dL (6.3-8.2)
--- NOTE | 2022-11-10 18:19 | CT ---
EXAMINATION TYPE: CT brain wo con CT DLP: 1119.4 mGycm, Automated exposure control for dose reduction was used. DATE OF EXAM: 11/10/2022 6:09 PM COMPARISON: 12/15/2018. CLINICAL INDICATION:Female, 67 years old with history of Altered mental status, dizziness and ams TECHNIQUE: Brain: Axial CT images of the brain were obtained with coronal and sagittal reformats created and rev iewed. Contrast used: None. Oral contrast used: None. FINDINGS: Brain: Extra-axial spaces: No abnormal extra-axial fluid collections. Ventricular system: Within normal limits Cerebral parenchyma: No acute intraparenchymal hemorrhage or mass effect. The benitez-white junction is well differentiated. Cerebellum: Unremarkable. Mass effect: No evidence of midline shift. Intracranial vasculature: Atherosclerotic calcifications of the intracranial vessels. Soft tissues: Normal. Calvarium/osseous structures: No depressed skull fracture. Paranasal sinuses and mastoid air cells: Mild scattered paranasal sinus disease. Visualized orbits: Orbital contents are intact. IMPRESSION: No acute intracranial process.
[2022-11-10 20:18] VITALS: BP 129/84; PULSE 90; RESP 18
== END 2022-11-10 20:18 | disposition home or self-care (01) ==
LOC: EC 14:52
DX: E11.649 Type 2 diabetes mellitus with hypoglycemia without coma (principal); I10 Essential (primary) hypertension; E78.00 Pure hypercholesterolemia, unspecified; Z79.84 Long term (current) use of oral hypoglycemic drugs; Z86.73 Personal history of transient ischemic attack (TIA), and cerebral infarction without residual deficits; Z79.82 Long term (current) use of aspirin; Z79.4 Long term (current) use of insulin; Z79.899 Other long term (current) drug therapy; Z88.1 Allergy status to other antibiotic agents; Z88.0 Allergy status to penicillin; Z88.5 Allergy status to narcotic agent
CPT/HCPCS: 36415; 70450; 71046; 80053; 81001; 83735; 84484; 85025; 85379; 85610; 85730; 93005; 99284

== ENCOUNTER → 2023-12-12 | Outpatient (CLI) | payer MEDICARE, OTHER | LOC: PNWHC3 13:30 | PROVIDERS: ATTEND Specialist | DX: M25.551 Pain in right hip | CPT/HCPCS: 99211 ==

== ENCOUNTER 2024-05-02 09:10 | Inpatient (IN) | payer MEDICARE, OTHER ==
--- NOTE | 2024-05-02 09:27 | ED ---
General Adult HPI - General Chief complaint: Shortness of Breath Stated complaint: SOB Time Seen by Provider: 05/02/24 09:13 Source: patient, EMS, RN notes reviewed Mode of arrival: EMS Limitations: no limitations - History of Present Illness Initial comments: Patient is a 69-year-old female present to the emergency department with concerns with difficulty breathing. Onset of symptoms was around 1 week ago. Symptoms usually are worse with lying flat. Sometimes symptoms with exertion. Patient sometimes have chest discomfort however is unclear if that is related or not. No chest discomfort at this time. No cough. No fever. No calf pain or leg swelling. Patient is on Plavix. Patient does have history of previous stroke and previous pulmonary embolism - Related Data Home Medications Medication Instructions Recorded Confirmed Atorvastatin [Lipitor] 40 mg PO DAILY 11/15/14 02/12/19 metFORMIN HCL [Glucophage] 500 mg PO TID 11/15/14 02/12/19 Clopidogrel [Plavix] 75 mg PO DAILY 01/27/18 02/12/19 Insulin Glargine,Hum.rec.anlog 45 unit SQ HS 01/27/18 02/12/19 [Basaglar Kwikpen U-100] Ubidecarenone [Co Q-10] 200 mg PO DAILY 01/27/18 02/12/19 Aspirin EC [Ecotrin] 325 mg PO DAILY 02/12/19 02/12/19 Folic Acid 0.2 mg PO DAILY 02/12/19 02/12/19 Allergies Allergy/AdvReac Type Severity Reaction Status Date / Time cephalexin monohydrate Allergy Rash/Hives Verified 05/02/24 09:23 [From Keflex] morphine Allergy Rash/Hives Verified 05/02/24 09:23 Penicillins Allergy Rash/Hives Verified 05/02/24 09:23 Review of Systems ROS Statement: Those systems with pertinent positive or pertinent negative responses have been documented in the HPI. ROS Other: All systems not noted in ROS Statement are negative. Constitutional: Denies: fever Eyes: Denies: eye pain ENT: Denies: ear pain Respiratory: Reports: as per HPI, dyspnea. Denies: cough Cardiovascular: Reports: chest pain, dyspnea on exertion, orthopnea Endocrine: Denies: fatigue Gastrointestinal: Denies: abdominal pain Musculoskeletal: Denies: back pain Past Medical History Past Medical History: CVA/TIA, Diabetes Mellitus, Hyperlipidemia, Hypertension, Pulmonary Embolus (PE) Additional Past Medical History / Comment(s): HIGH CHOLESTEROL, pancreatitis History of Any Multi-Drug Resistant Organisms: None Reported Past Surgical History: Hysterectomy, Orthopedic Surgery Additional Past Surgical History / Comment(s): OVARIAN CYST REMOVED, VEIN STRIPPING. partial hysterectomy. Right shoulder surgery Additional Past Anesthesia/Blood Transfusion Reaction / Comment(s): PROBLEMS WAKING UP POST ANESTHESIA Past Psychological History: Depression Smoking Status: Former smoker Past Alcohol Use History: Rare Past Drug Use History: None Reported - Past Family History Mother Family Medical History: Cancer, Diabetes Mellitus Additional Family Medical History / Comment(s): LYMPHOMA Father Family Medical History: Unable to Obtain Sister(s) Family Medical History: Cancer, Diabetes Mellitus Additional Family Medical History / Comment(s): LYMPHOMA Brother(s) Family Medical History: No Reported History Son(s) Family Medical History: No Reported History General Exam Limitations: no limitations General appearance: alert, in no apparent distress Head exam: Present: normocephalic Eye exam: Present: normal appearance Neck exam: Present: normal inspection Respiratory exam: Present: normal lung sounds bilaterally. Absent: respiratory distress Cardiovascular Exam: Present: regular rate, normal rhythm, normal heart sounds GI/Abdominal exam: Present: soft. Absent: tenderness Extremities exam: Present: normal inspection. Absent: pedal edema, calf tenderness Neurological exam: Present: alert Psychiatric exam: Present: normal affect, normal mood Skin exam: Present: normal color Course Vital Signs 05/02/24 05/02/24 05/02/24 09:12 09:23 10:29 Temperature 98.4 F Pulse Rate 85 83 Respiratory 20 20 18 Rate Blood Pressure 150/87 160/98 O2 Sat by Pulse 97 100 Oximetry 05/02/24 11:13 Temperature Pulse Rate 85 Respiratory 20 Rate Blood Pressure 137/86 O2 Sat by Pulse 99 Oximetry EKG Findings - EKG Results: EKG: interpreted by ERMD (Left axis. PVCs present.), sinus rhythm, normal QRS, normal ST/T Medical Decision Making - Medical Decision Making Was pt. sent in by a medical professional or institution (, PA, [employer]ADER, urgent care, hospital, or intermediate...) When possible be specific @ -No Did you speak to anyone other than the patient for history (EMS, parent, family, police, friend...)? What history was obtained from this source @ -No Did you review nursing and triage notes (agree or disagree)? Why? @ -I reviewed and agree with nursing and triage notes Were old charts reviewed (outside hosp., previous admission, EMS record, old EKG, old radiological studies, urgent care reports/EKG's, intermediate records)? Report findings @ -No old charts were reviewed Differential Diagnosis (chest pain, altered mental status, abdominal pain women, abdominal pain men, vaginal bleeding, weakness, fever, dyspnea, syncope, headache, dizziness, GI bleed, back pain, seizure, CVA, palpatations, mental health, musculoskeletal)? @ -Differential Chest Pain: Stable Angina, Unstable Angina, STEMI, NSTEMI Aortic Dissection, Pneumothorax, Musculoskeletal, Esophageal Spasm GERD, Cholecystitis, Pancreatitis, Zoster, this is not meant to be an all-inclusive list. EKG interpreted by me (3pts min.). @ -As above X-rays interpreted by me (1pt min.). @ -Chest x-ray shows no acute process CT interpreted by me (1pt min.). @ -CT scan negative for pulmonary embolism U/S interpreted by me (1pt. min.). @ -None done What testing was considered but not performed or refused? (CT, X-rays, U/S, la bs)? Why? @ -None What meds were considered but not given or refused? Why? @ -None Did you discuss the management of the patient with other professionals (professionals i.e. , PA, [employer]ADER, lab, RT, psych nurse, social science research assistant, endoscopy registered nurse, teacher, finance officer, family service caseworker)? Give summary @ -Case was discussed with Dr. Best who will admit his patient Was smoking cessation discussed for >3mins.? @ -No Was critical care preformed (if so, how long)? @ -33 minutes critical care time provided Were there social determinants of health that impacted care today? How? (Homelessness, low income, unemployed, alcoholism, drug addiction, transportation, low edu. Level, literacy, decrease access to med. care, assisted, rehab)? @ -No Was there de-escalation of care discussed even if they declined (Discuss DNR or withdrawal of care, Hospice)? DNR status @ -No What co-morbidities impacted this encounter? (DM, HTN, Smoking, COPD, CAD, Cancer, CVA, ARF, Chemo, Hep., AIDS, mental health diagnosis, sleep apnea, morbid obesity)? @ -History of previous pulmonary embolism Was patient admitted / discharged? Hospital course, mention meds given and route, prescriptions, significant lab abnormalities, going to OR and other pertinent info. @ -Patient presents with dyspnea and some chest discomfort. No significant EKG change however troponin is elevated. CT scan negative for pulmonary embolism. Patient will be admitted with heparin and cardiac consult. Patient reevaluated and updated. Patient symptom-free at this time. Admission orders written. Undiagnosed new problem with uncertain prognosis? @ -No Drug Therapy requiring intensive monitoring for toxicity (Heparin, Nitro, Insulin, Cardizem)? @ -Heparin drip Were any procedures done? @ -No Diagnosis/symptom? @ -Non-ST elevation myocardial infarction Acute, or Chronic, or Acute on Chronic? @ -Acute Uncomplicated (without systemic symptoms) or Complicated (systemic symptoms)? @ -Default Side effects of treatment? @ -No Exacerbation, Progression, or Severe Exacerbation? @ -No Poses a threat to life or bodily function? How? (Chest pain, USA, NC, pneumonia, PE, COPD, DKA, ARF, appy, cholecystitis, CVA, Diverticulitis, Homicidal, Krys cidal, threat to staff... and all critical care pts) @ -Threat to cardiac function - Lab Data Result diagrams: 05/02/24 09:26 05/02/24 09:26 Lab Results 05/02/24 05/02/24 05/02/24 Range/Units 09:26 09:26 09:26 WBC 10.2 (3.8-10.6) k/uL RBC 4.40 (3.80-5.40) m/uL Hgb 13.1 (11.4-16.0) gm/dL Hct 39.8 (34.0-46.0) % MCV 90.6 (80.0-100.0) fL MCH 29.9 (25.0-35.0) pg MCHC 32.9 (31.0-37.0) g/dL RDW 13.3 (11.5-15.5) % Plt Count 292 (150-450) k/uL MPV 7.8 Neutrophils % 51 % Lymphocytes % 41 % Monocytes % 4 % Eosinophils % 2 % Basophils % 1 % Neutrophils # 5.2 (1.3-7.7) k/uL Lymphocytes # 4.2 (1.0-4.8) k/uL Monocytes # 0.4 (0-1.0) k/uL Eosinophils # 0.2 (0-0.7) k/uL Basophils # 0.1 (0-0.2) k/uL PT 10.7 (10.0-12.5) sec INR 1.0 (<1.2) APTT 23.3 (22.0-30.0) sec D-Dimer 0.84 H (<0.60) mg/L FEU Sodium 140 (137-145) mmol/L Potassium 3.3 L (3.5-5.1) mmol/L Chloride 104 (98-107) mmol/L Carbon Dioxide 26 (22-30) mmol/L Anion Gap 10 mmol/L BUN 11 (7-17) mg/dL Creatinine 0.77 (0.52-1.04) mg/dL Est GFR (CKD-EPI)AfAm >90 (>60 ml/min/1.73 sqM) Est GFR (CKD-EPI)NonAf 80 (>60 ml/min/1.73 sqM) Glucose 163 H (74-99) mg/dL POC Glucose (mg/dL) (70-110) mg/dL POC Glu Motor Vehicle Emissions Inspector ID Plasma Lactic Acid [place]loan (0.7-2.0) mmol/L Calcium 9.6 (8.4-10.2) mg/dL Magnesium 1.8 (1.6-2.3) mg/dL Total Bilirubin 0.6 (0.2-1.3) mg/dL AST 26 (14-36) U/L ALT 26 (4-34) U/L Alkaline Phosphatase 136 H (38-126) U/L Troponin I (0.000-0.034) ng/mL NT-Pro-B Natriuret Pep 257 pg/mL Total Protein 6.9 (6.3-8.2) g/dL Albumin 4.1 (3.5-5.0) g/dL 05/02/24 05/02/24 05/02/24 Range/Units 09:26 09:26 11:49 WBC (3.8-10.6) k/uL RBC (3.80-5.40) m/uL Hgb (11.4-16.0) gm/dL Hct (34.0-46.0) % MCV (80.0-100.0) fL MCH (25.0-35.0) pg MCHC (31.0-37.0) g/dL RDW (11.5-15.5) % Plt Count (150-450) k/uL MPV Neutrophils % % Lymphocytes % % Monocytes % % Eosinophils % % Basophils % % Neutrophils # (1.3-7.7) k/uL Lymphocytes # (1.0-4.8) k/uL Monocytes # (0-1.0) k/uL Eosinophils # (0-0.7) k/uL Basophils # (0-0.2) k/uL PT (10.0-12.5) sec INR (<1.2) APTT (22.0-30.0) sec D-Dimer (<0.60) mg/L FEU Sodium (137-145) mmol/L Potassium (3.5-5.1) mmol/L Chloride (98-107) mmol/L Carbon Dioxide (22-30) mmol/L Anion Gap mmol/L BUN (7-17) mg/dL Creatinine (0.52-1.04) mg/dL Est GFR (CKD-EPI)AfAm (>60 ml/min/1.73 sqM) Est GFR (CKD-EPI)NonAf (>60 ml/min/1.73 sqM) Glucose (74-99) mg/dL POC Glucose (mg/dL) 87 (70-110) mg/dL POC Glu Motor Vehicle Emissions Inspector ID [place] Plasma Lactic Acid Sloan 1.5 (0.7-2.0) mmol/L Calcium (8.4-10.2) mg/dL Magnesium (1.6-2.3) mg/dL Total Bilirubin (0.2-1.3) mg/dL AST (14-36) U/L ALT (4-34) U/L Alkaline Phosphatase (38-126) U/L Troponin I 0.114 H* (0.000-0.034) ng/mL NT-Pro-B Natriuret Pep pg/mL Total Protein (6.3-8.2) g/dL Albumin (3.5-5.0) g/dL Critical Care Time Critical Care Time: Yes Disposition Clinical Impression: NSTEMI (non-ST elevated myocardial infarction) Disposition: ADMITTED IP TO THIS [facility] Condition: Serious Is patient prescribed a controlled substance at d/c from ED?: No Referrals: Tello Best MD [Primary Care Provider] - 1-2 days Time of Disposition: 12:07
[2024-05-02 09:33] LABS: Basophils # (A) 0.1 k/uL (0-0.2); Basophils % (A) 1 %; Eosinophils # (A) 0.2 k/uL (0-0.7); Eosinophils % (A) 2 %; HCT 39.8 % (34.0-46.0); HGB 13.1 gm/dL (11.4-16.0); Lymphocytes # (A) 4.2 k/uL (1.0-4.8); Lymphocytes % (A) 41 %; MCH 29.9 pg (25.0-35.0); MCHC 32.9 g/dL (31.0-37.0); MCV 90.6 fL (80.0-100.0); Mean Platelet Volume 7.8; Monocytes # (A) 0.4 k/uL (0-1.0); Monocytes % (A) 4 %; Neutrophils # (A) 5.2 k/uL (1.3-7.7); Neutrophils % (A) 51 %; Platelet Count 292 k/uL (150-450); RDW 13.3 % (11.5-15.5); WBC 10.2 k/uL (3.8-10.6)
--- NOTE | 2024-05-02 09:46 | XR ---
EXAMINATION TYPE: XR chest 2V DATE OF EXAM: 05/02/2024 9:35 AM COMPARISON: 1223 CLINICAL INDICATION: Female, 69 years old with history of difficulty breathing, TECHNIQUE: XR chest 2V view(s) obtained. FINDINGS: The heart size is normal. The pulmonary vasculature is normal. The lungs are clear. IMPRESSION: 1. No acute pulmonary process. [facility], Workstation: [facility], 05/02/2024 9:44 AM
[2024-05-02 09:47] LABS: ALT 26 U/L (4-34); AST 26 U/L (14-36); African American GFR (CKD) >90 (>60 ml/min/1.73 sqM); Albumin 4.1 g/dL (3.5-5.0); Alkaline Phosphatase 136 U/L (38-126); Anion Gap 10 mmol/L; Blood Urea Nitrogen 11 mg/dL (7-17); Calcium 9.6 mg/dL (8.4-10.2); Carbon Dioxide 26 mmol/L (22-30); Chloride 104 mmol/L (98-107); Glucose 163 mg/dL (74-99); Magnesium 1.8 mg/dL (1.6-2.3); Non-African American GFR(CKD) 80 (>60 ml/min/1.73 sqM); Potassium 3.3 mmol/L (3.5-5.1); Sodium 140 mmol/L (137-145); Total Bilirubin 0.6 mg/dL (0.2-1.3); Total Protein 6.9 g/dL (6.3-8.2)
[2024-05-02 09:51] LABS: Partial Thromboplastin Time 23.3 sec (22.0-30.0); Prothrombin Time 10.7 sec (10.0-12.5)
[2024-05-02 09:54] LABS: NT-Pro-B-Type Natriuretic Pept 257 pg/mL
[2024-05-02] MEDS ORDERED: HEPARIN SODIUM 1,000 UN/ML (10ML VL) IV PRN (10:01)
[2024-05-02] MEDS: HEPARIN SOD,PORK IN 0.45% NACL 25,000 UNIT in 0.45% NACL 1 250ML.BAG IV SCH (10:26)
[2024-05-02] MEDS: HEPARIN SODIUM 1,000 UN/ML (10ML VL) IV ONE (10:26)
--- NOTE | 2024-05-02 11:06 | CT ---
EXAMINATION TYPE: CT angio chest DATE OF EXAM: 05/02/2024 10:24 AM COMPARISON: 01/27/2018 CLINICAL INDICATION: Female, 69 years old with history of kit, KIT, hx PE TECHNIQUE: CT of the chest is performed on a spiral scan at 2 mm thick sections. Study is performed with intravenous contrast timed for evaluation for pulmonary embolism. This will limit additional po rtions of the evaluation. 3-D MIP images reconstructed by the technologist are reviewed on the compu ter in the coronal and sagittal planes. Contrast used:100 mL of Isovue 370 with IV Contrast, (none if empty) Oral contrast used: (none if empty) CT DLP: 342.6 mGycm, Automated exposure control for dose reduction was used. FINDINGS: No persistent filling defects are evident to suggest an acute pulmonary embolism. No mediastinal or hilar adenopathy enlarged by CT criteria is evident. The ascending aorta diameter at the level of the main pulmonary artery is 3.3 cm. The main pulmonary artery diameter at the bifurcation is 2.8 cm. Lung windows are clear. Limited CT sections were through the upper abdomen. Upper abdomen appears unremarkable. IMPRESSION: 1. No acute pulmonary embolism. 2. No acute pulmonary process. [facility], Workstation: [id number], 05/02/2024 11:03 AM
[2024-05-02 11:50] LABS: Glucose,Whole Blood 87 mg/dL (70-110)
[2024-05-02] MEDS ORDERED: NITROGLYCERIN SL TABS 0.4 MG TAB SUBLINGUAL PRN (12:08)
[2024-05-02] MEDS: ASPIRIN 81 MG PO STA (12:14)
[2024-05-02] MEDS: NITROGLYCERIN OINT 1 INCH/GM PACKET TOPICAL SCH (12:15)
--- NOTE | 2024-05-02 14:14 | P.CRDCN ---
History of Present Illness Consult date: 05/02/24 History of present illness: HISTORY OF PRESENTING ILLNESS: Patient is a 69-year-old female with past medical history of type 2 diabetes, hypertension, dyslipidemia and prior CVA. Patient presented to the ER because of concerns of generalized weakness, shortness of breath with exertion and lack of energy for last 3 to 4 days which has been gradually worsening. Admission Cardiac Labs: Hb 13, BUN 11, creatinine 0.7, troponin 0.1, follow-up troponin 5.85 Admission testing: EKG shows sinus rhythm, frequent PVCs, nonspecific ST changes in inferolateral leads. CTA chest did not show any evidence of PE however it did show severe coronary artery calcification REVIEW OF SYSTEMS: 14 point review of system is negative except what is mentioned above in HPI. PHYSICAL EXAMINATION: Neck: Brisk carotid upstroke, no jugular venous distention. Lungs: Clear to auscultation. Heart: Regular rate and rhythm, S1-S2, , no murmur or rub. Abdomen: Soft nontender, positive bowel sounds. Extremities: No edema, intact distal pulses. Neuro: Alert, oritented, no focal deficits. Detailed neuro exam was not performed. ASSESSMENT: # NSTEMI type I # Frequent PVCs # Essential hypertension # Dyslipidemia # Type 2 diabetes # Coronary artery calcification PLAN: Aspirin 81 mg, Lipitor 40 mg, metoprolol succinate 25 g daily, lisinopril 10 mg daily Start IV nitroglycerin drip Start IV heparin drip Plan for cardiac catheterization tomorrow Obtain echocardiogram Obtain NT-proBNP, HbA1c and lipid panel Helio Bowden MD, FACC, RPVI Thank you for allowing [facility] to participate in this patient's care. Feel free to reach out in case of any followup questions. Past Medical History Past Medical History: CVA/TIA, Diabetes Mellitus, Hyperlipidemia, Hypertension, Pulmonary Embolus (PE) Additional Past Medical History / Comment(s): HIGH CHOLESTEROL, pancreatitis History of Any Multi-Drug Resistant Organisms: None Reported Past Surgical History: Hysterectomy, Orthopedic Surgery Additional Past Surgical History / Comment(s): OVARIAN CYST REMOVED, VEIN STRIPPING. partial hysterectomy. Right shoulder surgery Additional Past Anesthesia/Blood Transfusion Reaction / Comment(s): PROBLEMS WAK ING UP POST ANESTHESIA Past Psychological History: Depression Smoking Status: Former smoker Past Alcohol Use History: Rare Past Drug Use History: None Reported - Past Family History Mother Family Medical History: Cancer, Diabetes Mellitus Additional Family Medical History / Comment(s): LYMPHOMA Father Family Medical History: Unable to Obtain Sister(s) Family Medical History: Cancer, Diabetes Mellitus Additional Family Medical History / Comment(s): LYMPHOMA Brother(s) Family Medical History: No Reported History Son(s) Family Medical History: No Reported History Medications and Allergies Home Medications Medication Instructions Recorded Confirmed Type Atorvastatin [Lipitor] 40 mg PO HS 11/15/14 05/02/24 History Clopidogrel [Plavix] 75 mg PO DAILY 01/27/18 05/02/24 History Aspirin EC [Ecotrin] 325 mg PO DAILY 02/12/19 05/02/24 History Semaglutide [Ozempic] 2 mg SQ TU 05/02/24 05/02/24 History lisinopriL [Zestril] 10 mg PO DAILY 05/02/24 05/02/24 History Allergies Allergy/AdvReac Type Severity Reaction Status Date / Time cephalexin monohydrate Allergy Rash/Hives Verified 05/02/24 12:26 [From Keflex] morphine Allergy Rash/Hives Verified 05/02/24 12:26 Penicillins Allergy Rash/Hives Verified 05/02/24 12:26 Physical Exam Vitals: Vital Signs Temp Pulse Resp BP Pulse Ox 05/02/24 14:10 85 18 141/96 99 05/02/24 13:00 87 18 135/91 100 05/02/24 11:13 85 20 137/86 99 05/02/24 10:29 83 18 160/98 100 05/02/24 09:23 20 05/02/24 09:12 98.4 F 85 20 150/87 97 Intake and Output 05/01/24 05/02/24 05/02/24 22:59 06:59 14:59 Other: Weight 82.69 kg Results 05/02/24 09:26 05/02/24 09:26 Cardiac Enzymes 05/02/24 05/02/24 05/02/24 Range/Units 09:26 09:26 12:28 AST 26 (14-36) U/L Troponin I 0.114 H* 5.850 H* (0.000-0.034) ng/mL Coagulation 05/02/24 Range/Units 09: PT 10.7 (10.0-12.5) sec APTT 23.3 (22.0-30.0) sec CBC 05/02/24 Range/Units 09:26 WBC 10.2 (3.8-10.6) k/uL RBC 4.40 (3.80-5.40) m/uL Hgb 13.1 (11.4-16.0) gm/dL Hct 39.8 (34.0-46.0) % Plt Count 292 (150-450) k/uL Comprehensive Metabolic Panel 05/02/24 Range/Units 09:26 Sodium 140 (137-145) mmol/L Potassium 3.3 L (3.5-5.1) mmol/L Chloride 104 (98-107) mmol/L Carbon Dioxide 26 (22-30) mmol/L BUN 11 (7-17) mg/dL Creatinine 0.77 (0.52-1.04) mg/dL Glucose 163 H (74-99) mg/dL Calcium 9.6 (8.4-10.2) mg/dL AST 26 (14-36) U/L ALT 26 (4-34) U/L Alkaline Phosphatase 136 H (38-126) U/L Total Protein 6.9 (6.3-8.2) g/dL Albumin 4.1 (3.5-5.0) g/dL Current Medications Generic Name Dose Route Start Last Admin Trade Name Freq PRN Reason Stop Dose Admin Aspirin 81 mg 05/03/24 09:00 Aspirin 81 Mg PO DAILY [facility] Atorvastatin Calcium 40 mg 05/02/24 21:00 Atorvastatin 40 Mg Tab PO HS [facility] Heparin Sodium (Porcine) 0 unit 05/02/24 10:01 Heparin Sodium 1,000 Un/Ml (10ml Vl) IV PER PROTOCOL PRN Low PTT Protocol Heparin Sodium/Sodium Chloride 250 mls @ 9.923 mls/hr 05/02/24 10:15 05/02/24 10:26 25,000 unit/ Sodium Chloride IV 12 units/kg/hr .Q24H [facility] 9.923 mls/hr Administration Protocol 12 UNITS/KG/HR Nitroglycerin/Dextrose 50 mg/ 250 mls @ 1.5 mls/hr 05/02/24 14:15 IV Solution IV .Q24H [facility] Protocol 5 MCG/MIN Lisinopril 10 mg 05/02/24 14:15 Lisinopril 10 Mg Tab PO DAILY [facility] Metoprolol Succinate 25 mg 05/02/24 14:15 Metoprolol Succinate (Er) 25 Mg Tab.Er.24h PO DAILY [facility] Nitroglycerin 0.4 mg 05/02/24 12:08 Nitroglycerin Sl Tabs 0.4 Mg Tab SUBLINGUAL Q5M PRN Chest Pain Intake and Output 05/01/24 05/02/24 05/02/24 22:59 06:59 14:59 Other: Weight 82.69 kg Patient Weight 05/03/24 06:59 Weight 82.69 kg 05/02/24 09:26 05/02/24 09:26
[2024-05-02 14:40] LABS: Glucose,Whole Blood 89 mg/dL (70-110)
[2024-05-02] MEDS: NITROGLYCERIN-D5W PMX 50 MG in DEXTROSE/WATER 1 250ML.BAG IV SCH (15:07)
[2024-05-02] MEDS: lisinopriL 10 MG TAB PO SCH (15:11)
[2024-05-02] MEDS: METOPROLOL SUCCINATE (ER) 25 MG TAB.ER.24H PO SCH (15:12)
[2024-05-02 15:43] LABS: Glucose,Whole Blood 153 mg/dL (70-110)
[2024-05-02] MEDS: ATORVASTATIN 40 MG TAB PO SCH (20:10)
[2024-05-02 20:14] LABS: Glucose,Whole Blood 112 mg/dL (70-110)
[2024-05-03 02:57] LABS: Glucose,Whole Blood 124 mg/dL (70-110)
[2024-05-03 06:16] LABS: Basophils # (A) 0.1 k/uL (0-0.2); Basophils % (A) 1 %; Eosinophils # (A) 0.1 k/uL (0-0.7); Eosinophils % (A) 1 %; HCT 35.8 % (34.0-46.0); HGB 11.6 gm/dL (11.4-16.0); Lymphocytes # (A) 3.2 k/uL (1.0-4.8); Lymphocytes % (A) 35 %; MCH 29.7 pg (25.0-35.0); MCHC 32.4 g/dL (31.0-37.0); MCV 91.7 fL (80.0-100.0); Monocytes # (A) 0.5 k/uL (0-1.0); Monocytes % (A) 5 %; Neutrophils % (A) 56 %; Platelet Count 257 k/uL (150-450); RDW 13.6 % (11.5-15.5); WBC 8.9 k/uL (3.8-10.6)
[2024-05-03 06:33] LABS: Partial Thromboplastin Time 61.3 sec (22.0-30.0); Prothrombin Time 11.1 sec (10.0-12.5)
[2024-05-03 07:34] LABS: Glucose,Whole Blood 100 mg/dL (70-110)
[2024-05-03] MEDS ORDERED: NITROGLYCERIN SL TABS 0.4 MG TAB SUBLINGUAL PRN (08:15)
[2024-05-03] MEDS ORDERED: ALPRAZolam 0.5 MG TAB PO PRN (08:15)
[2024-05-03] MEDS ORDERED: ALPRAZolam 0.25 MG TAB PO PRN (08:15)
[2024-05-03] MEDS: ASPIRIN 81 MG PO SCH (08:31)
[2024-05-03] MEDS: CLOPIDOGREL 75 MG TAB PO SCH (08:31)
[2024-05-03] MEDS: ASPIRIN 325 MG TAB PO STA (08:33)
--- NOTE | 2024-05-03 08:38 | P.HPIM ---
History of Present Illness H&P Date: 05/03/24 This is a 69-year-old female who presented to the emergency department with complaints of difficulty breathing and some chest discomfort. Patient reports she has not been feeling well for about a week. Her symptoms are usually worse with laying flat. She does have a history of a previous CVA and previous pulmonary embolism. Troponins are elevated on admission. Patient is scheduled for cardiac catheterization this morning. She is seen this morning resting comfortably on ER stretcher. She denies any current chest pain. Further medical history as noted below. Review of Systems Constitutional: Reports fatigue, Denies chills, Denies fever Cardiovascular: Reports chest pain, Reports dyspnea on exertion Respiratory: Reports dyspnea, Denies cough Gastrointestinal: Denies nausea, Denies vomiting Musculoskeletal: Denies arm numbness/tingling, Denies leg numbness/tingling Neurological: Denies headaches, Denies weakness Past Medical History Past Medical History: CVA/TIA, Diabetes Mellitus, Hyperlipidemia, Hypertension, Pulmonary Embolus (PE) Additional Past Medical History / Comment(s): HIGH CHOLESTEROL, pancreatitis History of Any Multi-Drug Resistant Organisms: None Reported Past Surgical History: Hysterectomy, Orthopedic Surgery Additional Past Surgical History / Comment(s): OVARIAN CYST REMOVED, VEIN STRIPPING. partial hysterectomy. Right shoulder surgery Additional Past Anesthesia/Blood Transfusion Reaction / Comment(s): PROBLEMS WAKING UP POST ANESTHESIA Past Psychological History: Depression Smoking Status: Former smoker Past Alcohol Use History: Rare Past Drug Use History: None Reported - Past Family History Mother Family Medical History: Cancer, Diabetes Mellitus Additional Family Medical History / Comment(s): LYMPHOMA Father Family Medical History: Unable to Obtain Sister(s) Family Medical History: Cancer, Diabetes Mellitus Additional Family Medical History / Comment(s): LYMPHOMA Brother(s) Family Medical History: No Reported History Son(s) Family Medical History: No Reported History Medications and Allergies Home Medications Medication Instructions Recorded Confirmed Type Atorvastatin [Lipitor] 40 mg PO HS 11/15/14 05/02/24 History Clopidogrel [Plavix] 75 mg PO DAILY 01/27/18 05/02/24 History Aspirin EC [Ecotrin] 325 mg PO DAILY 02/12/19 05/02/24 History Semaglutide [Ozempic] 2 mg SQ TU 05/02/24 05/02/24 History lisinopriL [Zestril] 10 mg PO DAILY 05/02/24 05/02/24 History Allergies Allergy/AdvReac Type Severity Reaction Status Date / Time cephalexin monohydrate Allergy Rash/Hives Verified 05/02/24 12:26 [From Keflex] morphine Allergy Rash/Hives Verified 05/02/24 12:26 Penicillins Allergy Rash/Hives Verified 05/02/24 12:26 Physical Exam Vitals: Vital Signs Temp Pulse Resp BP Pulse Ox 05/03/24 07:20 73 20 123/75 95 05/03/24 06:35 98.5 F 70 17 105/53 97 05/03/24 03:59 98.5 F 95 16 92/65 96 05/03/24 02:00 75 16 91/50 97 05/03/24 00:00 67 16 94/61 96 05/02/24 23:48 94/63 05/02/24 23:31 93/61 05/02/24 23:20 93/60 05/02/24 23:11 79 16 102/65 97 05/02/24 22:00 79 16 101/59 96 05/02/24 20:00 72 18 106/70 99 05/02/24 19:00 78 18 102/67 99 05/02/24 18:32 97/70 05/02/24 18:00 101 H 18 88/73 97 05/02/24 17:02 89 18 119/79 97 05/02/24 16:01 85 18 105/84 99 05/02/24 15:00 92 18 139/95 98 05/02/24 14:10 85 18 141/96 99 05/02/24 13:00 87 18 135/91 100 05/02/24 11:13 85 20 137/86 99 05/02/24 10:29 83 18 160/98 100 05/02/24 09:23 20 05/02/24 09:12 98.4 F 85 20 150/87 97 Intake and Output 05/02/24 05/03/24 05/03/24 22:59 06:59 14:59 Intake Total 79.384 123.376 Balance 79.384 123.376 Intake: Intake, IV Titration 79.384 123.376 Amount Heparin Sod,Pork in 0.45% 79.384 123.376 NaCl 25,000 unit In 0.45 % NaCl 1 250ml.bag @ 12 UNITS/KG/HR 9.923 mls/hr IV .Q24H [facility] Rx#: [id number] - Constitutional General appearance: cooperative, no acute distress - EENT Eyes: PERRLA - Neck Neck: no lymphadenopathy, normal ROM, no rigidity - Respiratory Respiratory: bilateral: CTA - Cardiovascular Rhythm: regular Heart sounds: normal: S1, S2 - Gastrointestinal General gastrointestinal: soft, no tenderness - Integumentary Integumentary: normal, normal turgor - Psychiatric Psychiatric: A&O x's 3, appropriate affect, intact judgment & insight Results CBC & Chem 7: 05/03/24 05:40 05/02/24 09:26 Labs: Abnormal Lab Results - Last 24 Hours (Table) 05/02/24 05/02/24 05/02/24 Range/Units 09:26 09:26 09:26 APTT (22.0-30.0) sec D-Dimer 0.84 H (<0.60) mg/L FEU Potassium 3.3 L (3.5-5.1) mmol/L Glucose 163 H (74-99) mg/dL POC Glucose (mg/dL) (70-110) mg/dL Alkaline Phosphatase 136 H (38-126) U/L Troponin I 0.114 H* (0.000-0.034) ng/mL 05/02/24 05/02/24 05/02/24 Range/Units 12:28 15:41 17:25 APTT 50.6 H (22.0-30.0) sec D-Dimer (<0.60) mg/L FEU Potassium (3.5-5.1) mmol/L Glucose (74-99) mg/dL POC Glucose (mg/dL) 153 H (70-110) mg/dL Alkaline Phosphatase (38-126) U/L Troponin I 5.850 H* (0.000-0.034) ng/mL 05/02/24 05/02/24 05/03/24 Range/Units 17:25 20:12 02:55 APTT (22.0-30.0) sec D-Dimer (<0.60) mg/L FEU Potassium (3.5-5.1) mmol/L Glucose (74-99) mg/dL POC Glucose (mg/dL) 112 H 124 H (70-110) mg/dL Alkaline Phosphatase (38-126) U/L Troponin I 9.590 H* (0.000-0.034) ng/mL 05/03/24 Range/Units 05:40 APTT 61.3 H (22.0-30.0) sec D-Dimer (<0.60) mg/L FEU Potassium (3.5-5.1) mmol/L Glucose (74-99) mg/dL POC Glucose (mg/dL) (70-110) mg/dL Alkaline Phosphatase (38-126) U/L Troponin I (0.000-0.034) ng/mL Assessment and Plan (1) NSTEMI (non-ST elevated myocardial infarction) Current Visit: Yes Status: Acute Code(s): I21.4 - NON-ST ELEVATION (NSTEMI) MYOCARDIAL INFARCTION SNOMED Code(s): 72793163 (2) Diabetes mellitus Current Visit: Yes Status: Acute Code(s): E11.9 - TYPE 2 DIABETES MELLITUS WITHOUT COMPLICATIONS SNOMED Code(s): 55256517 (3) HTN (hypertension) Current Visit: No Status: Acute Code(s): I10 - ESSENTIAL (PRIMARY) HYPERTENSION SNOMED Code(s): 13523463 (4) History of CVA (cerebrovascular accident) Current Visit: No Status: Acute Code(s): Z86.73 - PRSNL HX OF TIA (TIA), AND CEREB INFRC W/O RESID DEFICITS SNOMED Code(s): 994963009 (5) Hx pulmonary embolism Current Visit: No Status: Acute Code(s): Z86.711 - PERSONAL HISTORY OF PULMONARY EMBOLISM SNOMED Code(s): 634612055 (6) Hyperlipemia Current Visit: Yes Status: Acute Code(s): E78.5 - HYPERLIPIDEMIA, UNSPECIFIED SNOMED Code(s): 09662741 Plan: Order Accu-Cheks before meals and at bedtime. Order sliding scale coverage and hold Ozempic for now. Appreciate cardiology input, await results of cardiac catheterization. Patient seen and evaluated by nurse practitioner, physician in agreement with plan.
[2024-05-03] MEDS: ATORVASTATIN 80 MG TAB PO STA (08:40)
[2024-05-03] MEDS: SODIUM CHLORIDE 0.9% 1,000 ML in EMPTY BAG 1 BAG IV SCH (08:40)
[2024-05-03] MEDS ORDERED: ASPIRIN 325 MG TAB PO SCH (09:00)
[2024-05-03] MEDS ORDERED: NON FORMULARY DRUG (Aspirin Ec 325 MG Tablet.Dr) PO SCH (09:00)
[2024-05-03 09:45] LABS: Chol/HDL Ratio 2.42 Ratio; LDL Cholesterol,Calculated 56.2 mg/dL (0.0-131.0)
[2024-05-03 09:48] LABS: Chol/HDL Ratio 2.16 Ratio; LDL Cholesterol,Calculated 49.9 mg/dL (0.0-131.0); VLDL Calculation 11.18 mg/dL (5.00-40.00)
[2024-05-03 11:45] LABS: Glucose,Whole Blood 97 mg/dL (70-110)
[2024-05-03] MEDS: INSULIN ASPART (NovoLOG) 100 UNIT/ML VIAL SQ SCH (11:53)
[2024-05-03] MEDS: HEPARIN SODIUM,PORCINE 10,000 UNIT in SODIUM CHLORIDE 0.9% 1,000 ML IRRIGATION PRN (12:30)
[2024-05-03] MEDS: HEPARIN SODIUM,PORCINE (1 ML) 2,500 UNIT in SODIUM CHLORIDE 0.9% 250 ML IRRIGATION PRN (12:30)
[2024-05-03] MEDS: IV FLUID CONTINUATION 1,000 ML IV ONE (12:30)
[2024-05-03] MEDS: fentaNYL (PF) 50 MCG/ML 2 ML AMP IVP ONE (12:38)
[2024-05-03] MEDS: MIDAZOLAM 2 MG/2 ML VIAL IVP ONE (12:38)
[2024-05-03] MEDS: LIDOCAINE 1% INJ 10MG/ML (20 ML MDV) SQ ONE (12:41)
[2024-05-03] MEDS: VERAPAMIL SYRINGE (5 MG/10 ML) INTRAARTER ONE (12:44)
[2024-05-03] MEDS: HEPARIN SODIUM 1,000 UN/ML (10ML VL) IV ONE (13:01)
[2024-05-03] MEDS: IOPAMIDOL-370 100ML BTL INJ ONE ×2 (13:11→13:21)
--- NOTE | 2024-05-03 13:42 | P.CARDCATH ---
Date of Procedure: 05/03/24 Description of Procedure: DIAGNOSTIC CORONARY ANGIOGRAPHY and LEFT HEART CATH REPORT PROCEDURES PERFORMED: Left heart catheterization Selective coronary angiography Moderate conscious sedation [45] mins [Ultrasound assisted] Right radial access INDICATION: NSTEMI Patient presented to the hospital because of substernal chest pressure and shortness of breath with increased fatigue for last few days. On admission she had evidence of uptrending troponin. CONSENT: I have explained the procedural steps of above-mentioned procedures in layman's terms to the patient. I discussed the risks (including but not limited to stroke, emergent vascular or cardiac surgery or ), benefits and alternative therapies for the above-mentioned procedure. I discussed the risks of sedation/analgesia and blood product administration (if indicated). The patient has indicated understanding and acceptance of these risks. Conscious Sedation: Patient's ECG, heart rate, blood pressure, pulse oximetry were monitored throughout the duration of procedure under my direct supervision. [2] mg Versed and [50] mcg Fentanyl were used for induction of moderate conscious sedation. Total duration of moderate concious sedation 45 minutes. PROCEDURE: After explaining the risks, benefits and alternatives of the above mentioned procedures in detail to the patient, informed consent was obtained. Patient was taken to the catheterization lab, prepped and draped in usual sterile fashion using universal precuations. Ultrasound was used to identify the radial artery. 1% lidocaine was infiltrated over the right radial artery. A 6-[place] sheath was placed and secured in the right radial artery using modified Seldinger technique. The sheath was flushed and 5 mg verapamil was administered intra-arterially. J tipped wire was advanced under fluoroscopic guidance. The wire tip could not be advanced to the aortic root because of significant tortuosity in the right subclavian artery near its origin from aortic arch. For this the wire was exchanged over a JR4 diagnostic catheter for a Glidewire. The the wire and the catheter was selectively manipulated to enter the ascending aorta under fluoroscopy. Once the wire tip reached aortic root 4000 units of IV heparin was given. Patient was on IV heparin drip prior to the procedure. Over the wire JR4 diagnostic catheter was advanced. Right coronary artery was attempted to be cannulated but could not be done so because of significant inability to maneuver the catheter because of tortuosity in subclavian artery. It also appeared that the right coronary artery had an anomalous origin. This catheter was exchanged for a JL 4 diagnostic catheter over the wire. The wire was removed and the catheter was flushed. The catheter was manipulated to selectively engage the left coronary ostium. The left coronary angiogram was performed. This catheter was exchanged for a Jarad catheter 5 [place] over the J-wire. This catheter was unsuccessful to cannulate the right coronary artery. After multiple attempts, nonselective aortic root injection was performed to visualize the right coronary artery. This artery disease on nondominant artery small caliber and appears to be patent. The JR4 catheter did prolapse into the left ventricle. Left atrial pressures were obtained. Catheter was removed over the wire. Radial sheath was flushed. The right radial sheath was removed and a TR band was placed with excellent patent hemostasis was achieved. The patient tolerated the procedure well. Patient was transported back to the post catheterization holding area in stable condition. Angiographic images were reviewed in detail. 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 HEMODYNAMICS: Aortic Pressure: 110/75 mmHg. LV pressure: 110/10 mmHg. LVEDP 18 mmHg. There was no significant gradient across the aortic valve. SELECTIVE CORONARY ARTERIOGRAPHY: LEFT MAIN: The left main is short and large caliber vessel. It bifurcates into the LAD and circumflex. Left main appears angiographically normal. LEFT ANTERIOR DESCENDING CORONARY ARTERY: LAD is a large caliber vessel which wraps around to the apex. Proximal mid and distal LAD has minimal calcific luminal irregularities but appears to be patent. A mid LAD gives rise to 2 medium size diagonal branches appears to be patent. LEFT CIRCUMFLEX CORONARY ARTERY: Dominant artery, large caliber. Mild calcification noticed. LCx appears to be patent. Gives rise to a large OM1 branch which appears to be patent. After giving OM branch, LCx becomes a AV groove branch that gives the PDA distally which appears to be patent. RIGHT CORONARY ARTERY: Nondominant artery, small caliber. Selective angiogram was not performed. Appears to be originating from left coronary cusp with interarterial course between aorta and pulmonary artery. Nonselective angiogram showed patent RCA. 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 125 cc fluids for 4 hours Discharge home in 4 hours Follow-up in the office in 1-2 weeks. Performing Physician Helio Bowden MD, FACC, RPVI Thank you for allowing [facility] to participate in this patient's care. Feel free to reach out in case of any followup questions.
[2024-05-03 16:26] LABS: Glucose,Whole Blood 103 mg/dL (70-110)
[2024-05-03] MEDS: SODIUM CHLORIDE 0.9% 1,000 ML IV SCH (16:27)
[2024-05-03] MEDS: ACETAMINOPHEN TAB 325 MG TAB PO PRN (16:34)
[2024-05-03] MEDS: traMADol 50 MG TAB PO PRN (17:36)
[2024-05-03 20:11] LABS: Glucose,Whole Blood 106 mg/dL (70-110)
[2024-05-04 06:04] LABS: Glucose,Whole Blood 97 mg/dL (70-110)
[2024-05-04 06:11] LABS: HCT 34.3 % (34.0-46.0); HGB 11.4 gm/dL (11.4-16.0); MCH 30.5 pg (25.0-35.0); MCHC 33.3 g/dL (31.0-37.0); MCV 91.5 fL (80.0-100.0); Mean Platelet Volume 7.9; Platelet Count 243 k/uL (150-450); RBC 3.75 m/uL (3.80-5.40); RDW 13.8 % (11.5-15.5); WBC 8.8 k/uL (3.8-10.6)
[2024-05-04 06:35] LABS: African American GFR (CKD) >90 (>60 ml/min/1.73 sqM); Anion Gap 7 mmol/L; Blood Urea Nitrogen 10 mg/dL (7-17); Calcium 8.9 mg/dL (8.4-10.2); Carbon Dioxide 25 mmol/L (22-30); Chloride 104 mmol/L (98-107); Glucose 91 mg/dL (74-99); Non-African American GFR(CKD) 90 (>60 ml/min/1.73 sqM); Potassium 3.8 mmol/L (3.5-5.1); Sodium 136 mmol/L (137-145)
--- NOTE | 2024-05-04 08:38 | P.DS ---
Providers Date of admission: 05/02/24 12:09 Attending physician: Tello Best Consults: 05/02/24 12:08 Consult Physician Urgent Consulting Provider: Debra Aguiar Consult Reason/Comments: nstemi Do you want consulting provider notified?: Yes Primary care physician: Tello Best [facility] Course: This is a 69-year-old female who came in for significant chest pain. Radiation of the shoulder. She ended up having cardiac catheterization which did not show critical disease. We will optimize treatment of diabetes and consequently cardiac health. She is discharged in stable condition tolerating diet and voiding without difficulty. Patient Condition at Discharge: Stable Plan - Discharge Summary Discharge Rx Participant: No New Discharge Prescriptions: New Nitroglycerin Sl Tabs [Nitrostat] 0.4 mg SUBLINGUAL Q5M PRN #50 tab PRN Reason: Chest Pain Metoprolol Succinate (ER) [Toprol XL] 25 mg PO DAILY #30 tab Continue Atorvastatin [Lipitor] 40 mg PO HS Clopidogrel [Plavix] 75 mg PO DAILY Aspirin EC [Ecotrin] 325 mg PO DAILY lisinopriL [Zestril] 10 mg PO DAILY Semaglutide [Ozempic] 2 mg SQ Discharge Medication List Atorvastatin [Lipitor] 40 mg PO HS 11/15/14 [History] Clopidogrel [Plavix] 75 mg PO DAILY 01/27/18 [History] Aspirin EC [Ecotrin] 325 mg PO DAILY 02/12/19 [History] Semaglutide [Ozempic] 2 mg SQ TU 05/02/24 [History] lisinopriL [Zestril] 10 mg PO DAILY 05/02/24 [History] Metoprolol Succinate (ER) [Toprol XL] 25 mg PO DAILY #30 tab 05/04/24 [Rx] Nitroglycerin Sl Tabs [Nitrostat] 0.4 mg SUBLINGUAL Q5M PRN #50 tab 05/04/24 [Rx] Follow up Appointment(s)/Referral(s): Tello Best MD [Primary Care Provider] - 1 Week
[2024-05-04 11:37] LABS: Glucose,Whole Blood 101 mg/dL (70-110)
--- NOTE | 2024-05-04 14:12 | P.PN ---
Subjective Progress Note Date: 05/04/24 HISTORY OF PRESENTING ILLNESS: Patient is a 69-year-old female with past medical history of type 2 diabetes, hypertension, dyslipidemia and prior CVA. Patient presented to the ER because of concerns of generalized weakness, shortness of breath with exertion and lack of energy for last 3 to 4 days which has been gradually worsening. Admission Cardiac Labs: Hb 13, BUN 11, creatinine 0.7, troponin 0.1, follow-up troponin 5.85 Admission testing: EKG shows sinus rhythm, frequent PVCs, nonspecific ST changes in inferolateral leads. CTA chest did not show any evidence of PE however it did show severe coronary artery calcification 04/03/2025 Patient seen and examined. Yesterday patient underwent cardiac catheterization which revealed normal coronary arteries with no obstructive disease. Patient denies having any chest pain. She states prior to her coming in she did feel her heart was going fast and then slow. No fever or chills no cough or wheezing. Discussed with patient there is concern that her troponins are elevated and will need to rule out myocarditis. Echocardiogram is currently pending. Will plan to get a repeat EKG and lab work in the morning. Blood pressure 105/53, heart rate 63, pulse ox 100% on room air. Repeat blood work reveals hemoglobin 11.4, potassium 3.8, BUN 10 and creatinine 0.7. PHYSICAL EXAMINATION: Lungs: Clear to auscultation. Heart: Regular rate and rhythm, S1-S2, , no murmur or rub. Abdomen: Soft nontender, positive bowel sounds. Extremities: No edema, intact distal pulses. Right wrist, no hematoma, bleeding. Neuro: Alert, oritented, no focal deficits. Detailed neuro exam was not performed. ASSESSMENT: # NSTEMI type I, rule out myocarditis # Frequent PVCs # Essential hypertension # Dyslipidemia # Type 2 diabetes # Coronary artery calcification PLAN: Continue aspirin 81 mg, Lipitor 40 mg, metoprolol succinate 25 g daily, lisinopril 10 mg daily Repeat EKG in the morning Repeat BMP in the morning Obtain echocardiogram Continue monitoring patient overnight. Anticipate probable discharge home tomorrow Nurse practitioner note has been reviewed, I agree with documented findings and plan of care. Patient was seen and examined. Objective - Vital Signs Vital signs: Vital Signs Temp 98.1 F 05/04/24 03:30 Pulse 62 05/04/24 03:30 Resp 17 05/04/24 03:30 BP 93/53 05/04/24 03:30 Pulse Ox 99 05/04/24 03:30 FiO2 Intake & Output 05/03/24 05/04/24 05/04/24 18:59 06:59 18:59 Intake Total 959.184 40 Balance 959.184 40 Weight 82.69 kg 82.2 kg Intake: IV 700 40 Invasive Line 1 20 Invasive Line 2 20 Intake, IV Titration 19.184 Amount Heparin Sod,Pork in 0.45% 19.184 NaCl 25,000 unit In 0.45 % NaCl 1 250ml.bag @ 12 UNITS/KG/HR 9.923 mls/hr IV .Q24H [facility] Rx#: [id number] Oral 240 Other: Voiding Method Toilet # Voids 1 1 - Labs CBC & Chem 7: 05/04/24 05:25 05/04/24 05:25 Labs: Abnormal Lab Results - Last 24 Hours (Table) 05/04/24 05/04/24 Range/Units 05:25 05:25 RBC 3.75 L (3.80-5.40) m/uL Sodium 136 L (137-145) mmol/L
[2024-05-04 16:54] LABS: Glucose,Whole Blood 144 mg/dL (70-110)
--- NOTE | 2024-05-04 18:22 | CA ---
Transthoracic Echo Report Name: Chantal Ambriz Age: 69 Gender: F : 1955 Exam Date: 05/04/2024 09:07 Exam Location: [place] [facility] Ht (in): 67 Wt (lb): 182 Ordering Physician: Asad Bernard DO Attending/Referring Phys: Regional Administrative Assistant Keena Johnson RDCS Procedure CPT: Indications: nstemi Cardiac Hx: Technical Quality: Technically difficult study Contrast 1: Definity Total Dose (mL): 1 Contrast 2: Total Dose (mL): MEASUREMENTS (Male / Female) Normal Values 2D ECHO LV Diastolic Diameter PLAX 4.4 cm 4.2 - 5.9 / 3.9 - 5.3 cm LV Systolic Diameter PLAX 3.7 cm IVS Diastolic Thickness 0.9 cm 0.6 - 1.0 / 0.6 - 0.9 cm LVPW Diastolic Thickness 0.8 cm 0.6 - 1.0 / 0.6 - 0.9 cm LV Relative Wall Thickness 0.4 LVOT Diameter 2.1 cm LV Diastolic Volume MOD BP 128.9 cm??? 67 - 155 / 56 - 104 cm??? LV Systolic Volume MOD BP 60.9 cm??? 22 - 58 / 19 - 49 cm??? LV Ejection Fraction MOD BP 52.8 % >= 55 % LV Cardiac Index MOD BP 2250.5 cm???/min???m??? LV Diastolic Volume MOD 4C 136.6 cm??? LV Systolic Volume MOD 4C 66.0 cm??? LV Ejection Fraction MOD 4C 51.7 % LV Cardiac Index MOD 4C 2334.5 cm???/min???m??? LV Diastolic Length 4C 8.3 cm LV Systolic Length 4C 6.7 cm LV Diastolic Volume MOD 2C 115.1 cm??? LV Systolic Volume MOD 2C 55.8 cm??? LV Ejection Fraction MOD 2C 51.5 % LV Cardiac Index MOD 2C 1959.5 cm???/min???m??? LV Diastolic Length 2C 7.8 cm LV Systolic Length 2C 6.8 cm LA Volume 54.7 cm??? 18 - 58 / 22 - 52 cm??? LA Volume Index 27.4 cm???/m??? 16 - 28 cm???/m??? Ascending Aorta Diameter 3.6 cm DOPPLER AV Peak Velocity 111.2 cm/s AV Peak Gradient 4.9 mmHg AV Mean Velocity 77.2 cm/s AV Mean Gradient 2.7 mmHg AV Velocity Time Integral 21.9 cm LVOT Peak Velocity 80.3 cm/s LVOT Peak Gradient 2.6 mmHg LVOT Velocity Time Integral 15.5 cm LVOT Stroke Volume 55.5 cm??? LVOT Stroke Volume Index 28.6 ml/m??? LVOT Cardiac Index 1834.2 cm???/min???m??? AV Area Cont Eq vti 2.5 cm??? AV Area Cont Eq pk 2.6 cm??? MV Area PHT 4.4 cm??? Mitral E Point Velocity 63.8 cm/s Mitral A Point Velocity 52.8 cm/s Mitral E to A Ratio 1.2 MV Deceleration Time 173.5 ms PV Peak Velocity 66.3 cm/s PV Peak Gradient 1.8 mmHg FINDINGS Left Ventricle Left ventricular ejection fraction is estimated at 40-45 %. Moderately increased left ventricular diastolic volume. Moderately increased left ventricular systolic volume. Mildly decreased left ventricular ejection fraction with global hypokinesis. Left ventricular wall thickness normal. Right Ventricle Normal right ventricular size and function. Unable to estimate the right ventricular systolic pressure. Right Atrium Normal right atrial size. Left Atrium Mildly increased left atrial volume. Mitral Valve Structurally normal mitral valve. No evidence for mitral valve prolapse. No mitral stenosis. Trace mitral regurgitation. Aortic Valve Trileaflet aortic valve. No aortic valve stenosis or regurgitation. Tricuspid Valve Structurally normal tricuspid valve. No tricuspid stenosis. Trace tricuspid regurgitation. Pulmonic Valve Pulmonic valve not well visualized. No pulmonic stenosis. No pulmonic regurgitation. Pericardium No pericardial effusion. Aorta Normal size aortic root and proximal ascending aorta. CONCLUSIONS Impaired LV function with EF between 40 to 45% and global hypokinesia No significant valvular abnormalities noted No pericardial effusion Previewed by: Dr. Gavino Hernandez MD (Electronically Signed) Final Date: 04 May 2024 18:22
[2024-05-04 19:58] LABS: Glucose,Whole Blood 113 mg/dL (70-110)
[2024-05-05 05:45] LABS: Glucose,Whole Blood 105 mg/dL (70-110)
[2024-05-05 10:23] VITALS: RESP 17; TEMP 98.2
[2024-05-05 11:23] LABS: African American GFR (CKD) 88 (>60 ml/min/1.73 sqM); Anion Gap 4 mmol/L; Blood Urea Nitrogen 11 mg/dL (7-17); Calcium 9.6 mg/dL (8.4-10.2); Carbon Dioxide 29 mmol/L (22-30); Chloride 107 mmol/L (98-107); Glucose 153 mg/dL (74-99); Non-African American GFR(CKD) 77 (>60 ml/min/1.73 sqM); Potassium 4.3 mmol/L (3.5-5.1); Sodium 140 mmol/L (137-145)
[2024-05-05 11:47] VITALS: BP 100/67; PULSE 76
--- NOTE | 2024-05-05 13:30 | P.PN ---
Subjective HISTORY OF PRESENT ILLNESS: Patient is a 69-year-old female with past medical history of type 2 diabetes, hypertension, dyslipidemia and prior CVA. Patient presented to the ER because of concerns of generalized weakness, shortness of breath with exertion and lack of energy for last 3 to 4 days which has been gradually worsening. Admission Cardiac Labs: Hb 13, BUN 11, creatinine 0.7, troponin 0.1, follow-up troponin 5.85 Admission testing: EKG shows sinus rhythm, frequent PVCs, nonspecific ST changes in inferolateral leads. CTA chest did not show any evidence of PE however it did show severe coronary artery calcification 05/04/2024 Patient seen and examined. Yesterday patient underwent cardiac catheterization which revealed normal coronary arteries with no obstructive disease. Patient denies having any chest pain. She states prior to her coming in she did feel her heart was going fast and then slow. No fever or chills no cough or wheezing. Discussed with patient there is concern that her troponins are elevated and will need to rule out myocarditis. Echocardiogram is currently pending. Will plan to get a repeat EKG and lab work in the morning. Blood pressure 105/53, heart rate 63, pulse ox 100% on room air. Repeat blood work reveals hemoglobin 11.4, potassium 3.8, BUN 10 and creatinine 0.7. 05/05/2024 Patient examined this morning the bedside. Patient currently denies chest pain or pressure. She denies shortness of breath. Vital signs are stable. Echocardiogram completed revealing ejection fraction 40 to 45% with global hypokinesia and no pericardial effusion PHYSICAL EXAM: VITAL SIGNS: Reviewed. GENERAL: Well-developed in no acute distress. NECK: Supple. No JVD or thyromegaly LUNGS: Respirations even and unlabored. Lungs essentially clear to auscultation bilaterally. HEART: Regular rate and rhythm. S1 and S2 heard. EXTREMITIES: Normal range of motion. No clubbing or cyanosis. Peripheral pulses intact. No lower extremity edema ASSESSMENT: Non-STEMI, status post cardiac catheterization revealing mild nonobstructive CAD, likely myocarditis Nonischemic cardiomyopathy 40 to 45% Hypertension Hyperlipidemia Diabetes Frequent PVCs PLAN: Continue current cardiac medications Possible outpatient cardiac MRI Patient is stable for discharge home today from a cardiac standpoint Patient is to follow-up with Dr. Bowden in 1 week Nurse practitioner note has been reviewed by physician. Signing provider agrees with the documented findings, assessment, and plan of care documented by CAR SALES REPRESENTATIVE as a scribe. Objective - Vital Signs Vital signs: Vital Signs Temp 98.2 F 05/05/24 08:10 Pulse 76 05/05/24 11:47 Resp 17 05/05/24 11:47 BP 100/67 05/05/24 11:47 Pulse Ox 98 05/05/24 11:47 FiO2 Intake & Output 05/04/24 05/05/24 05/05/24 18:59 06:59 18:59 Intake Total 760 20 10 Balance 760 20 10 Weight 81.3 kg Intake: IV 20 10 Invasive Line 1 20 10 Oral 760 0 Other: Voiding Method Toilet Toilet Toilet # Voids 2 1 - Labs CBC & Chem 7: 05/04/24 05:25 05/05/24 10:26 Labs: Abnormal Lab Results - Last 24 Hours (Table) 05/04/24 05/04/24 05/05/24 Range/Units 16:52 19:56 10:26 Glucose 153 H (74-99) mg/dL POC Glucose (mg/dL) 144 H 113 H (70-110) mg/dL
== END 2024-05-05 12:04 | disposition home health service (06) | DRG 281 ==
LOC: EC 09:10 → 3SCARD 12:09
PROVIDERS: ADMIT Family Medicine; ATTEND Family Medicine
PROC: B2111ZZ Fluoroscopy of Multiple Coronary Arteries using Low Osmolar Contrast (ICD-10-PCS; 2024-05-03)
PROC: 4A023N7 Measurement of Cardiac Sampling and Pressure, Left Heart, Percutaneous Approach (ICD-10-PCS; principal; 2024-05-03 11:40)
DX: I21.4 Non-ST elevation (NSTEMI) myocardial infarction (principal); I42.8 Other cardiomyopathies; E11.9 Type 2 diabetes mellitus without complications; E78.00 Pure hypercholesterolemia, unspecified; I49.3 Ventricular premature depolarization; I25.10 Atherosclerotic heart disease of native coronary artery without angina pectoris; I77.1 Stricture of artery; I11.9 Hypertensive heart disease without heart failure; F32.A Depression, unspecified; Z86.73 Personal history of transient ischemic attack (TIA), and cerebral infarction without residual deficits; Z79.84 Long term (current) use of oral hypoglycemic drugs; Z79.899 Other long term (current) drug therapy; Z79.82 Long term (current) use of aspirin; Z88.5 Allergy status to narcotic agent; Z88.0 Allergy status to penicillin; Z88.8 Allergy status to other drugs, medicaments and biological substances; Z86.711 Personal history of pulmonary embolism; Z79.02 Long term (current) use of antithrombotics/antiplatelets; Z87.891 Personal history of nicotine dependence; Z90.711 Acquired absence of uterus with remaining cervical stump
CPT/HCPCS: 36415; 71046; 71275; 80048; 80053; 80061; 83036; 83605; 83735; 83880; 84443; 84484; 85025; 85027; 85379; 85610; 85730; 93005; 93306; 93458; 96365; 96366; 96375; 99291

== ENCOUNTER 2024-06-16 10:59 | Observation (INO) | payer MEDICARE, OTHER ==
--- NOTE | 2024-06-16 11:26 | ED ---
General Adult HPI - General Chief complaint: Chest Pain Stated complaint: Chest pain Time Seen by Provider: 06/16/24 11:07 Source: patient, family, RN notes reviewed Mode of arrival: ambulatory Limitations: no limitations - History of Present Illness Initial comments: Patient is a 69-year-old female present to the emergency department with concerns with chest discomfort. Onset of symptoms was less than an hour ago. Discomfort is somewhat severe rated 8/10. Discomfort feels like indigestion in her lower chest. Patient states there may be minimal associated dyspnea. No nausea. No diaphoresis. Patient did have similar symptoms beginning of the year and was told she did have a heart attack however there was no blockage and heart catheterization. Patient states discomfort this time is worse than it was previously. No calf pain or leg swelling. - Related Data Home Medications Medication Instructions Recorded Confirmed Atorvastatin [Lipitor] 40 mg PO HS 11/15/14 05/02/24 Clopidogrel [Plavix] 75 mg PO DAILY 01/27/18 05/02/24 Aspirin EC [Ecotrin] 325 mg PO DAILY 02/12/19 05/02/24 Semaglutide [Ozempic] 2 mg SQ TU 05/02/24 05/02/24 lisinopriL [Zestril] 10 mg PO DAILY 05/02/24 05/02/24 Previous Rx's Medication Instructions Recorded Metoprolol Succinate (ER) [Toprol 25 mg PO DAILY #30 tab 05/04/24 XL] Nitroglycerin Sl Tabs [Nitrostat] 0.4 mg SUBLINGUAL Q5M PRN #50 tab 05/04/24 Allergies Allergy/AdvReac Type Severity Reaction Status Date / Time cephalexin monohydrate Allergy Rash/Hives Verified 06/16/24 11:07 [From Keflex] morphine Allergy Rash/Hives Verified 06/16/24 11:07 Penicillins Allergy Rash/Hives Verified 06/16/24 11:07 Review of Systems ROS Statement: Those systems with pertinent positive or pertinent negative responses have been documented in the HPI. ROS Other: All systems not noted in ROS Statement are negative. Constitutional: Denies: fever Eyes: Denies: eye pain ENT: Denies: ear pain Respiratory: Reports: as per HPI Cardiovascular: Reports: as per HPI, chest pain Endocrine: Denies: fatigue Gastrointestinal: Denies: abdominal pain Musculoskeletal: Denies: back pain Past Medical History Past Medical History: Chest Pain / Angina, CVA/TIA, Diabetes Mellitus, Hyperlipidemia, Hypertension, Pulmonary Embolus (PE) Additional Past Medical History / Comment(s): HIGH CHOLESTEROL, pancreatitis History of Any Multi-Drug Resistant Organisms: None Reported Past Surgical History: Hysterectomy, Orthopedic Surgery Additional Past Surgical History / Comment(s): OVARIAN CYST REMOVED, VEIN STRIPPING. partial hysterectomy. Right shoulder surgery Additional Past Anesthesia/Blood Transfusion Reaction / Comment(s): PROBLEMS WAKING UP POST ANESTHESIA Past Psychological History: Depression Smoking Status: Former smoker Past Alcohol Use History: None Reported Past Drug Use History: None Reported - Past Family History Mother Family Medical History: Cancer, Diabetes Mellitus Additional Family Medical History / Comment(s): LYMPHOMA Father Family Medical History: Unable to Obtain Sister(s) Family Medical History: Cancer, Diabetes Mellitus Additional Family Medical History / Comment(s): LYMPHOMA Brother(s) Family Medical History: No Reported History Son(s) Family Medical History: No Reported History General Exam Limitations: no limitations General appearance: alert, in no apparent distress Head exam: Present: normocephalic Neck exam: Present: normal inspection Respiratory exam: Present: normal lung sounds bilaterally. Absent: chest wall tenderness Cardiovascular Exam: Present: regular rate, normal rhythm, normal heart sounds Expanded Peripheral pulses: 2+: Radial (R), Radial (L), Dorsalis Pedis (R), Dorsalis Pedis (L) GI/Abdominal exam: Present: soft. Absent: tenderness Extremities exam: Present: normal inspection. Absent: pedal edema, calf tenderness Neurological exam: Present: alert Psychiatric exam: Present: normal affect, normal mood Skin exam: Present: normal color Course Vital Signs 06/16/24 06/16/24 06/16/24 11:05 12:27 13:45 Temperature 98 F Pulse Rate 82 67 78 Respiratory 18 15 16 Rate Blood Pressure 149/83 99/43 112/65 O2 Sat by Pulse 99 96 98 Oximetry EKG Findings - EKG Results: EKG: interpreted by ERMD (PVCs present. Left axis. Poor R wave progression.), sinus rhythm, normal ST/T Medical Decision Making - Medical Decision Making Was pt. sent in by a medical professional or institution (, PA, CONTRACT ASSOCIATE, urgent care, hospital, or [facility]...) When possible be specific @ -No Did you speak to anyone other than the patient for history (EMS, parent, family, police, friend...)? What history was obtained from this source @ -Family is present helps provide additional history of patient having recent heart attack Did you review nursing and triage notes (agree or disagree)? Why? @ -I reviewed and agree with nursing and triage notes Were old charts reviewed (outside hosp., previous admission, EMS record, old EKG, old radiological studies, urgent care reports/EKG's, [facility] records)? Report findings @ -Previous admission reviewed Differential Diagnosis (chest pain, altered mental status, abdominal pain women, abdominal pain men, vaginal bleeding, weakness, fever, dyspnea, syncope, headache, dizziness, GI bleed, back pain, seizure, CVA, palpatations, mental health, musculoskeletal)? @ -Differential Chest Pain: Stable Angina, Unstable Angina, STEMI, NSTEMI Aortic Dissection, Pneumothorax, Musculoskeletal, Esophageal Spasm GERD, Cholecystitis, Pancreatitis, Zoster, this is not meant to be an all-inclusive list. EKG interpreted by me (3pts min.). @ -As above X-rays interpreted by me (1pt min.). @ -Chest x-ray shows no acute process CT interpreted by me (1pt min.). @ -CT scan of the chest shows no acute process, no evidence of pulmonary emboli sm U/S interpreted by me (1pt. min.). @ -None done What testing was considered but not performed or refused? (CT, X-rays, U/S, labs)? Why? @ -None What meds were considered but not given or refused? Why? @ -None Did you discuss the management of the patient with other professionals (professionals i.e. , PA, CONTRACT ASSOCIATE, lab, RT, psych nurse, psychiatric social worker, corporate lawyer, teacher, training systems officer, block and case maker)? Give summary @ -Case was discussed with Dr. Delong who will admit covering Dr. Best Was smoking cessation discussed for >3mins.? @ -No Was critical care preformed (if so, how long)? @ -No Were there social determinants of health that impacted care today? How? (Homelessness, low income, unemployed, alcoholism, drug addiction, transportation, low edu. Level, literacy, decrease access to med. care, snf, rehab)? @ -No Was there de-escalation of care discussed even if they declined (Discuss DNR or withdrawal of care, Hospice)? DNR status @ -No What co-morbidities impacted this encounter? (DM, HTN, Smoking, COPD, CAD, Cancer, CVA, ARF, Chemo, Hep., AIDS, mental health diagnosis, sleep apnea, morbid obesity)? @ -Recent myocardial infarction Was patient admitted / discharged? Hospital course, mention meds given and route, prescriptions, significant lab abnormalities, going to OR and other pertinent info. @ -Patient presents with chest discomfort. Initial evaluation unremarkable. Patient will be admitted with cardiac consult. Patient reevaluated and updated. Admission orders written. Undiagnosed new problem with uncertain prognosis? @ -No Drug Therapy requiring intensive monitoring for toxicity (Heparin, Nitro, Insulin, Cardizem)? @ -No Were any procedures done? @ -No Diagnosis/symptom? @ -Chest pain Acute, or Chronic, or Acute on Chronic? @ -Acute Uncomplicated (without systemic symptoms) or Complicated (systemic symptoms)? @ -Default Side effects of treatment? @ -No Exacerbation, Progression, or Severe Exacerbation? @ -No Poses a threat to life or bodily function? How? (Chest pain, USA, MD, pneumonia, PE, COPD, DKA, ARF, appy, cholecystitis, CVA, Diverticulitis, Homicidal, Suicidal, threat to staff... and all critical care pts) @ -Threat to cardiac function - Lab Data Result diagrams: 06/16/24 11:42 06/16/24 11:42 Lab Results 06/16/24 06/16/24 06/16/24 Range/Units 11:42 11:42 11:42 WBC 8.9 (3.8-10.6) k/uL RBC 4.65 (3.80-5.40) m/uL Hgb 14.1 (11.4-16.0) gm/dL Hct 42.9 (34.0-46.0) % MCV 92.1 (80.0-100.0) fL MCH 30.4 (25.0-35.0) pg MCHC 33.0 (31.0-37.0) g/dL RDW 13.6 (11.5-15.5) % Plt Count 302 (150-450) k/uL MPV 8.0 Neutrophils % 58 % Lymphocytes % 36 % Monocytes % 4 % Eosinophils % 2 % Basophils % 1 % Neutrophils # 5.1 (1.3-7.7) k/uL Lymphocytes # 3.1 (1.0-4.8) k/uL Monocytes # 0.3 (0-1.0) k/uL Eosinophils # 0.1 (0-0.7) k/uL Basophils # 0.1 (0-0.2) k/uL PT 10.3 (10.0-12.5) sec INR 0.9 (<1.2) APTT 22.9 (22.0-30.0) sec D-Dimer 0.82 H (<0.60) mg/L FEU Sodium 139 (137-145) mmol/L Potassium 4.1 (3.5-5.1) mmol/L Chloride 102 (98-107) mmol/L Carbon Dioxide 26 (22-30) mmol/L Anion Gap 11 mmol/L BUN 12 (7-17) mg/dL Creatinine 0.77 (0.52-1.04) mg/dL Est GFR (CKD-EPI)AfAm >90 (>60 ml/min/1.73 sqM) Est GFR (CKD-EPI)NonAf 80 (>60 ml/min/1.73 sqM) Glucose 161 H (74-99) mg/dL Calcium 10.0 (8.4-10.2) mg/dL Magnesium 1.9 (1.6-2.3) mg/dL Total Bilirubin 0.6 (0.2-1.3) mg/dL AST 29 (14-36) U/L ALT 30 (4-34) U/L Alkaline Phosphatase 149 H (38-126) U/L Troponin I (0.000-0.034) ng/mL NT-Pro-B Natriuret Pep 105 pg/mL Total Protein 7.6 (6.3-8.2) g/dL Albumin 4.5 (3.5-5.0) g/dL Amylase 75 (30-110) U/L Lipase 301 H (23-300) U/L 06/16/24 Range/Units 11:42 WBC (3.8-10.6) k/uL RBC (3.80-5.40) m/uL Hgb (11.4-16.0) gm/dL Hct (34.0-46.0) % MCV (80.0-100.0) fL MCH (25.0-35.0) pg MCHC (31.0-37.0) g/dL RDW (11.5-15.5) % Plt Count (150-450) k/uL MPV Neutrophils % % Lymphocytes % % Monocytes % % Eosinophils % % Basophils % % Neutrophils # (1.3-7.7) k/uL Lymphocytes # (1.0-4.8) k/uL Monocytes # (0-1.0) k/uL Eosinophils # (0-0.7) k/uL Basophils # (0-0.2) k/uL PT (10.0-12.5) sec INR (<1.2) APTT (22.0-30.0) sec D-Dimer (<0.60) mg/L FEU Sodium (137-145) mmol/L Potassium (3.5-5.1) mmol/L Chloride (98-107) mmol/L Carbon Dioxide (22-30) mmol/L Anion Gap mmol/L BUN (7-17) mg/dL Creatinine (0.52-1.04) mg/dL Est GFR (CKD-EPI)AfAm (>60 ml/min/1.73 sqM) Est GFR (CKD-EPI)NonAf (>60 ml/min/1.73 sqM) Glucose (74-99) mg/dL Calcium (8.4-10.2) mg/dL Magnesium (1.6-2.3) mg/dL Total Bilirubin (0.2-1.3) mg/dL AST (14-36) U/L ALT (4-34) U/L Alkaline Phosphatase (38-126) U/L Troponin I <0.012 (0.000-0.034) ng/mL NT-Pro-B Natriuret Pep pg/mL Total Protein (6.3-8.2) g/dL Albumin (3.5-5.0) g/dL Amylase (30-110) U/L Lipase (23-300) U/L Disposition Clinical Impression: Chest pain Disposition: ADMITTED IP TO THIS HOSP Is patient prescribed a controlled substance at d/c from ED?: No Referrals: Tello Best MD [Primary Care Provider] - 1-2 days Time of Disposition: 14:10
[2024-06-16] MEDS: ASPIRIN 81 MG PO STA (11:30)
[2024-06-16] MEDS: NITROGLYCERIN SL TABS 0.4 MG TAB SUBLINGUAL STA ×3 (11:31→18:36)
[2024-06-16 11:59] LABS: Basophils # (A) 0.1 k/uL (0-0.2); Basophils % (A) 1 %; Eosinophils # (A) 0.1 k/uL (0-0.7); Eosinophils % (A) 2 %; HCT 42.9 % (34.0-46.0); HGB 14.1 gm/dL (11.4-16.0); Lymphocytes # (A) 3.1 k/uL (1.0-4.8); Lymphocytes % (A) 36 %; MCH 30.4 pg (25.0-35.0); MCV 92.1 fL (80.0-100.0); Monocytes # (A) 0.3 k/uL (0-1.0); Monocytes % (A) 4 %; Neutrophils # (A) 5.1 k/uL (1.3-7.7); Neutrophils % (A) 58 %; Platelet Count 302 k/uL (150-450); RBC 4.65 m/uL (3.80-5.40); RDW 13.6 % (11.5-15.5); WBC 8.9 k/uL (3.8-10.6)
--- NOTE | 2024-06-16 12:15 | XR ---
EXAMINATION TYPE: XR chest 2V DATE OF EXAM: 06/16/2024 11:58 AM COMPARISON: Chest radiographs from 05/02/2024 CLINICAL INDICATION: Female, 69 years old with history of Chest Pain; TECHNIQUE: XR chest 2V Frontal and lateral views of the chest. FINDINGS: Lungs/Pleura: There is no evidence of pleural effusion, focal consolidation, or pneumothorax. Pulmonary vascularity: Unremarkable. Heart/mediastinum: Cardiomediastinal silhouette is unremarkable. Musculoskeletal: No acute osseous pathology. IMPRESSION: No acute cardiopulmonary disease/process. [facility], , 06/16/2024 12:13 PM
[2024-06-16 12:19] LABS: ALT 30 U/L (4-34); AST 29 U/L (14-36); African American GFR (CKD) >90 (>60 ml/min/1.73 sqM); Albumin 4.5 g/dL (3.5-5.0); Alkaline Phosphatase 149 U/L (38-126); Amylase 75 U/L (30-110); Anion Gap 11 mmol/L; Blood Urea Nitrogen 12 mg/dL (7-17); Carbon Dioxide 26 mmol/L (22-30); Chloride 102 mmol/L (98-107); Glucose 161 mg/dL (74-99); Lipase 301 U/L (23-300); Magnesium 1.9 mg/dL (1.6-2.3); Non-African American GFR(CKD) 80 (>60 ml/min/1.73 sqM); Potassium 4.1 mmol/L (3.5-5.1); Sodium 139 mmol/L (137-145); Total Bilirubin 0.6 mg/dL (0.2-1.3); Total Protein 7.6 g/dL (6.3-8.2)
[2024-06-16 12:21] LABS: INR 0.9 (<1.2); Partial Thromboplastin Time 22.9 sec (22.0-30.0); Prothrombin Time 10.3 sec (10.0-12.5)
[2024-06-16 12:27] LABS: NT-Pro-B-Type Natriuretic Pept 105 pg/mL
[2024-06-16] MEDS: ACETAMINOPHEN TAB 500 MG TAB PO STA (13:45)
--- NOTE | 2024-06-16 14:08 | CT ---
EXAMINATION TYPE: CT angio chest DATE OF EXAM: 06/16/2024 1:45 PM COMPARISON: 05/02/2024 CLINICAL INDICATION: Female, 69 years old with history of cp; CHEST PAIN AND ELEVATED D-DIMER TECHNIQUE/CONTRAST: CTA scan of the thorax is performed with IV Contrast, patient injected with 70ml mL of Isovue 370, MO P images are created and reviewed these are created on a separate workstation.. CT DLP: 403.9 mGycm, Automated exposure control for dose reduction was used. FINDINGS: Lungs/Pleura: No evidence of focal consolidation, pleural effusion or pneumothorax. Airway: Large airways are patent. Heart: Size within normal limits Vasculature: There is no evidence for a filling defect within the pulmonary vasculature to suggest ac enterprise pulmonary embolism. The pulmonary artery is of normal size. Mediastinum: No gross evidence of adenopathy. Musculoskeletal: Moderate disc degeneration changes are present throughout the thoracolumbar spine se condary to osteophyte formation and facet joint arthropathy. Soft Tissues/lymph nodes: Unremarkable. Lower neck: No significant findings. Upper Abdomen: No significant findings. IMPRESSION: 1. No evidence of pulmonary embolism. Follow up recommendations for incidental pulmonary nodules, if there are any, are per [employer] [employer] or [employer]. https://radiopaedia.org/articles/xxbcxagbka-qlrpxrl-advgwpyoc-elnzlg-[email or web address]?lang=us [facility], , 06/16/2024 2:05 PM
[2024-06-16] MEDS ORDERED: NITROGLYCERIN SL TABS 0.4 MG TAB SUBLINGUAL PRN (14:10)
[2024-06-16 16:43] LABS: Glucose,Whole Blood 86 mg/dL (70-110)
[2024-06-16] MEDS: NITROGLYCERIN OINT 1 INCH/GM PACKET TOPICAL SCH (18:35)
[2024-06-16 20:31] LABS: Glucose,Whole Blood 128 mg/dL (70-110)
[2024-06-17 05:50] LABS: Glucose,Whole Blood 106 mg/dL (70-110)
[2024-06-17] MEDS: ASPIRIN 325 MG TAB PO SCH (08:34)
[2024-06-17] MEDS: CLOPIDOGREL 75 MG TAB PO SCH (08:34)
[2024-06-17] MEDS: METOPROLOL SUCCINATE (ER) 25 MG TAB.ER.24H PO SCH (08:34)
[2024-06-17] MEDS: lisinopriL 10 MG TAB PO SCH (08:34)
[2024-06-17] MEDS: SPIRONOLACTONE 25 MG TAB PO SCH (08:34)
[2024-06-17 10:18] LABS: Calcium 9.4 mg/dL (8.7-10.3); Carbon Dioxide 25.4 mmol/L (21.6-31.8); Chloride 107 mmol/L (96-109); Glucose 116 mg/dL (70-110); LDL Cholesterol,Calculated 60.9 mg/dL (0.0-131.0); Potassium 4.3 mmol/L (3.5-5.5); Sodium 142 mmol/L (135-145); VLDL Calculation 15.86 mg/dL (5.00-40.00)
[2024-06-17 11:55] LABS: HCT 40.1 % (37.2-46.3); HGB 12.6 g/dL (12.0-15.0); MCH 29.5 pg (27.0-32.0); MCHC 31.4 g/dL (32.0-37.0); MCV 93.9 FL (80.0-97.0); Mean Platelet Volume 11.1 FL (9.5-12.2); NRBC Per 100 WBC 0 X 10*3/uL (0.00-0.01); Platelet Count 288 X 10*3/uL (140-440); RBC 4.27 X 10*6/uL (4.10-5.20); RDW 14.3 % (11.5-14.5); WBC 7.97 X 10*3/uL (4.50-10.00)
[2024-06-17 11:56] LABS: Basophils # (A) 0.05 X 10*3/uL (0.00-0.10); Basophils % (A) 0.6 %; Eosinophils # (A) 0.21 X 10*3/uL (0.04-0.35); Eosinophils % (A) 2.6 %; Lymphocytes # (A) 3.16 X 10*3/uL (0.90-5.00); Lymphocytes % (A) 39.6 %; Monocytes # (A) 0.57 X 10*3/uL (0.20-1.00); Monocytes % (A) 7.2 %; Neutrophils # (A) 3.97 X 10*3/uL (1.80-7.70); Neutrophils % (A) 49.9 %
--- NOTE | 2024-06-17 11:56 | P.CRDCN ---
History of Present Illness Consult date: 06/17/24 History of present illness: HISTORY OF PRESENTING ILLNESS: 69-year-old female known to Dr. Bowden. In May 2024 she presented to the hospital because of substernal chest pressure. During that admission she was noticed to have elevated troponin with an uptrending pattern with peak troponin of 5.85. She also had frequent PVCs but no sustained VT's. She had echocard iogram which showed an EF of 40 to 45%. 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 For this she was scheduled for a heart catheterization procedure which did not show any significant obstructive coronary artery disease other than mild to moderate disease in LAD territory which was non obstructive. This time she presents to the hospital because of epigastric pain and lower chest pain which was radiating to her back and left breast area. It is somewhat reproducible on palpation. Her troponins were not elevated she had elevated lipase level but normal malaise and her ALP was elevated. She is on Ozempic for diabetes and weight loss. She does have prior history of pancreatitis in the past. Her D-dimer was slightly elevated for which she had a CTA chest done which did not show evidence of PE or any acute lung pathology. Triglycerides 79, total cholesterol 122, LDL 60, HDL 45 Lipase 301, Amylase 149 REVIEW OF SYSTEMS: 14 point review of system is negative except what is mentioned above in HPI. PHYSICAL EXAMINATION: Neck: Brisk carotid upstroke, no jugular venous distention. Lungs: Clear to auscultation. Heart: Regular rate and rhythm, S1-S2, , no murmur or rub. Abdomen: Soft nontender, positive bowel sounds. Tenderness on palpation in epigastric area with a reproducible pain. Extremities: No edema, intact distal pulses. Neuro: Alert, oritented, no focal deficits. Detailed neuro exam was not performed. ASSESSMENT: # Epigastric pain, reproducible on palpation likely pancreatitis # Atypical chest pain, like more likely noncardiac # Recent troponin elevation, likely myocarditis related. Cannot rule out MINOCA # Type II NSTEMI # Dyslipidemia # Coronary artery calcification PLAN: Continue aspirin, Plavix for 6 months from May. Continue Lipitor 40, l isinopril 10, metoprolol 25 mg, Aldactone 12.5 mg daily. She cannot afford Jardiance and she had genitourinary fungal infection. I would hold her Ozempic and would not resume it on discharge. I would request GI evaluation if possible inpatient. Definitely outpatient Obtain abdominal ultrasound, if abnormal consider getting a CT abdomen. Request primary team to help with this. Helio Bowden MD, FAC, RPVI Thank you for allowing [facility] to participate in this patient's care. Feel free to reach out in case of any followup questions. Past Medical History Past Medical History: Chest Pain / Angina, CVA/TIA, Diabetes Mellitus, Hyperlipidemia, Hypertension, Myocardial Infarction (HI), Pulmonary Embolus (PE) Additional Past Medical History / Comment(s): HIGH CHOLESTEROL, pancreatitis Last Myocardial Infarction Date:: 05/02/24 History of Any Multi-Drug Resistant Organisms: None Reported Past Surgical History: Heart Catheterization, Hysterectomy, Orthopedic Surgery Additional Past Surgical History / Comment(s): OVARIAN CYST REMOVED, VEIN STRIPPING. partial hysterectomy. Right shoulder surgery Additional Past Anesthesia/Blood Transfusion Reaction / Comment(s): PROBLEMS W AKING UP POST ANESTHESIA Past Psychological History: Depression Smoking Status: Former smoker Past Alcohol Use History: None Reported Additional Past Alcohol Use History / Comment(s): quit smoking 30 years ago Past Drug Use History: None Reported - Past Family History Mother Family Medical History: Cancer, Diabetes Mellitus Additional Family Medical History / Comment(s): LYMPHOMA Father Family Medical History: Unable to Obtain Sister(s) Family Medical History: Cancer, Diabetes Mellitus Additional Family Medical History / Comment(s): LYMPHOMA Brother(s) Family Medical History: No Reported History Son(s) Family Medical History: No Reported History Medications and Allergies Home Medications Medication Instructions Recorded Confirmed Type Atorvastatin [Lipitor] 40 mg PO HS 11/15/14 06/16/24 History Clopidogrel [Plavix] 75 mg PO DAILY 01/27/18 06/16/24 History Aspirin EC [Ecotrin] 325 mg PO DAILY 02/12/19 06/16/24 History Semaglutide [Ozempic] 2 mg SQ TU 05/02/24 06/16/24 History lisinopriL [Zestril] 10 mg PO DAILY 05/02/24 06/16/24 History Metoprolol Succinate (ER) [Toprol 25 mg PO DAILY #30 tab 05/04/24 06/16/24 Rx XL] Nitroglycerin Sl Tabs [Nitrostat] 0.4 mg SUBLINGUAL Q5M PRN #50 tab 05/04/24 06/16/24 Rx Spironolactone [Aldactone] 12.5 mg PO DAILY 06/16/24 06/16/24 History Allergies Allergy/AdvReac Type Severity Reaction Status Date / Time cephalexin monohydrate Allergy Rash/Hives Verified 06/16/24 18:21 [From Keflex] morphine Allergy Rash/Hives Verified 06/16/24 18:21 Penicillins Allergy Rash/Hives Verified 06/16/24 18:21 Physical Exam Vitals: Vital Signs Temp Pulse Pulse Resp BP BP Pulse Ox 06/17/24 07:00 98.2 F 70 16 117/55 99 06/17/24 00:54 97.5 F L 68 16 111/72 99 06/16/24 20:25 97.6 F 66 16 112/72 98 06/16/24 19:48 63 17 121/62 98 06/16/24 18:36 66 22 106/61 100 06/16/24 15:38 75 17 126/85 93 L 06/16/24 13:45 78 16 112/65 98 06/16/24 12:27 67 15 99/43 96 Intake and Output 06/16/24 06/17/24 06/17/24 22:59 06:59 14:59 Intake Total 100 Balance 100 Intake: Oral 100 Other: # Voids 1 3 Weight 81.647 kg Results 06/16/24 11:42 06/17/24 05:28 Cardiac Enzymes 06/16/24 06/16/24 06/16/24 Range/Units 11:42 11:42 15:11 AST 29 (14-36) U/L Troponin I <0.012 <0.012 (0.000-0.034) ng/mL 06/16/24 Range/Units 17:31 AST (14-36) U/L Troponin I <0.012 (0.000-0.034) ng/mL Coagulation 06/16/24 Range/Units 11:42 PT 10.3 (10.0-12.5) sec APTT 22.9 (22.0-30.0) sec Lipids 06/17/24 Range/Units 05:28 Triglycerides 79.30 (0.00-149.00) mg/dL Cholesterol 122.00 (0.00-200.00) mg/dL HDL Cholesterol 45.20 (40.00-60.00) mg/dL Cholesterol/HDL Ratio 2.70 Ratio CBC 06/16/24 Range/Units 11:42 WBC 8.9 (3.8-10.6) k/uL RBC 4.65 (3.80-5.40) m/uL Hgb 14.1 (11.4-16.0) gm/dL Hct 42.9 (34.0-46.0) % Plt Count 302 (150-450) k/uL Comprehensive Metabolic Panel 06/16/24 06/17/24 Range/Units 11:42 05:28 Sodium 139 142 (137-145) mmol/L Potassium 4.1 4.3 (3.5-5.1) mmol/L Chloride 102 107 (98-107) mmol/L Carbon Dioxide 26 25.4 (22-30) mmol/L BUN 12 10.0 (7-17) mg/dL Creatinine 0.77 0.8 (0.52-1.04) mg/dL Glucose 161 H 116 H (74-99) mg/dL Calcium 10.0 9.4 (8.4-10.2) mg/dL AST 29 (14-36) U/L ALT 30 (4-34) U/L Alkaline Phosphatase 149 H (38-126) U/L Total Protein 7.6 (6.3-8.2) g/dL Albumin 4.5 (3.5-5.0) g/dL Current Medications Generic Name Dose Route Start Last Admin Trade Name Erisq PRN Reason Stop Dose Admin Aspirin 325 mg 06/17/24 09:00 06/17/24 08:34 Aspirin 325 Mg Tab PO 325 mg DAILY [facility] Administration Atorvastatin Calcium 40 mg 06/17/24 21:00 Atorvastatin 40 Mg Tab PO HS [facility] Clopidogrel Bisulfate 75 mg 06/17/24 09:00 06/17/24 08:34 Clopidogrel 75 Mg Tab PO 75 mg DAILY [facility] Administration Lisinopril 10 mg 06/17/24 09:00 06/17/24 08:34 Lisinopril 10 Mg Tab PO 10 mg DAILY [facility] Administration Metoprolol Succinate 25 mg 06/17/24 09:00 06/17/24 08:34 Metoprolol Succinate (Er) 25 Mg Tab.Er.24h PO 25 mg DAILY [facility] Administration Nitroglycerin 0.4 mg 06/16/24 14:10 Nitroglycerin Sl Tabs 0.4 Mg Tab SUBLINGUAL Q5M PRN Chest Pain Spironolactone 12.5 mg 06/17/24 09:00 06/17/24 08:34 Spironolactone 25 Mg Tab PO 12.5 mg DAILY [facility] Administration Intake and Output 06/16/24 06/17/24 06/17/24 22:59 06:59 14:59 Intake Total 100 Balance 100 Intake: Oral 100 Other: # Voids 1 3 Weight 81.647 kg 06/16/24 11:42 06/17/24 05:28
[2024-06-17 12:40] LABS: Glucose,Whole Blood 98 mg/dL (70-110)
[2024-06-17 13:49] LABS: Glucose,Whole Blood 85 mg/dL (70-110)
[2024-06-17] MEDS: PANTOPRAZOLE 40 MG/10 ML VIAL IVP SCH (13:56)
--- NOTE | 2024-06-17 15:58 | US ---
EXAMINATION TYPE: US abdomen limited DATE OF EXAM: 06/17/2024 COMPARISON: None. CLINICAL INDICATION: Female, 69 years old with history of Gall stone and pancreatitis; Pancreatitis p er patient. TECHNIQUE: Grayscale and color Doppler imaging of the right upper quadrant was performed. FINDINGS: EXAM MEASUREMENTS: Liver Length: 14.5 cm Gallbladder Wall: 0.2 cm CBD: 0.4 cm Right Kidney: 9.2 x 4.3 x 3.9 cm SUPERVISOR PUMPING NOTES:Limited due to bowel gas Pancreas: Obscured by bowel gas Liver: Left lobe obscured by bowel gas. Right lobe scanned through ribs. Gallbladder: No stones or wall thickening seen at time of scan Evidence for sonographic Perez's sign: neg CBD: wnl Right Kidney: No hydronephrosis or masses seen IMPRESSION: No acute process. [facility], , 06/17/2024 3:56 PM
[2024-06-17 17:19] LABS: Glucose,Whole Blood 202 mg/dL (70-110)
--- NOTE | 2024-06-17 17:44 | P.HPIM ---
History of Present Illness H&P Date: 06/16/24 Chief Complaint: Chest pain 69-year-old female, history of hypertension, hyperlipidemia, diabetes mellitus, history of PE, present to the emergency department with concerns with chest discomfort. Onset of symptoms was less than an hour ago. Discomfort is somewhat severe rated 8/10. Discomfort feels like indigestion in her lower chest. Patient states there may be minimal associated dyspnea. No nausea. No diaphoresis. Patient did have similar symptoms beginning of the year and was told she did have a heart attack however there was no blockage and heart catheterization. Patient states discomfort this time is worse than it was previously. No calf pain or leg swelling. Blood work completed in ED reveals WBC of 8.9, hemoglobin of 14.1 and platelet count of 302, sodium 139, potassium 4.1, BUNs/creatinine of 12/0.77, blood glucose of 161, troponin less than 0.012, BNP of 105, lipase of 301 Chest x-ray is negative for any acute cardiopulmonary process CTA of the chest was completed which does not reveal any PE Review of Systems REVIEW OF SYSTEMS: CONSTITUTIONAL: No fever, no malaise, no fatigue. HEENT: No recent visual problems or hearing problems. Denied any sore throat. CARDIOVASCULAR: No chest pain, orthopnea, PND, no palpitations, no syncope. PULMONARY: No shortness of breath, no cough, no hemoptysis. GASTROINTESTINAL: No diarrhea, no nausea, no vomiting, no abdominal pain. NEUROLOGICAL: No headaches, no weakness, no numbness. HEMATOLOGICAL: Denies any bleeding or petechiae. GENITOURINARY: Denies any burning micturition, frequency, or urgency. MUSCULOSKELETAL/RHEUMATOLOGICAL: Denies any joint pain, swelling, or any muscle pain. ENDOCRINE: Denies any polyuria or polydipsia. The rest of the 14-point review of systems is negative. Past Medical History Past Medical History: Chest Pain / Angina, CVA/TIA, Diabetes Mellitus, Hyperlipidemia, Hypertension, Pulmonary Embolus (PE) Additional Past Medical History / Comment(s): HIGH CHOLESTEROL, pancreatitis History of Any Multi-Drug Resistant Organisms: None Reported Past Surgical History: Hysterectomy, Orthopedic Surgery Additional Past Surgical History / Comment(s): OVARIAN CYST REMOVED, VEIN STRIPPING. partial hysterectomy. Right shoulder surgery Additional Past Anesthesia/Blood Transfusion Reaction / Comment(s): PROBLEMS WAKING UP POST ANESTHESIA Past Psychological History: Depression Smoking Status: Former smoker Past Alcohol Use History: None Reported Past Drug Use History: None Reported - Past Family History Mother Family Medical History: Cancer, Diabetes Mellitus Additional Family Medical History / Comment(s): LYMPHOMA Father Family Medical History: Unable to Obtain Sister(s) Family Medical History: Cancer, Diabetes Mellitus Additional Family Medical History / Comment(s): LYMPHOMA Brother(s) Family Medical History: No Reported History Son(s) Family Medical History: No Reported History Medications and Allergies Home Medications Medication Instructions Recorded Confirmed Type Atorvastatin [Lipitor] 40 mg PO HS 11/15/14 06/16/24 History Clopidogrel [Plavix] 75 mg PO DAILY 01/27/18 06/16/24 History Aspirin EC [Ecotrin] 325 mg PO DAILY 02/12/19 06/16/24 History Semaglutide [Ozempic] 2 mg SQ TU 05/02/24 06/16/24 History lisinopriL [Zestril] 10 mg PO DAILY 05/02/24 06/16/24 History Metoprolol Succinate (ER) [Toprol 25 mg PO DAILY #30 tab 05/04/24 06/16/24 Rx XL] Nitroglycerin Sl Tabs [Nitrostat] 0.4 mg SUBLINGUAL Q5M PRN #50 tab 05/04/24 06/16/24 Rx Spironolactone [Aldactone] 12.5 mg PO DAILY 06/16/24 06/16/24 History Allergies Allergy/AdvReac Type Severity Reaction Status Date / Time cephalexin monohydrate Allergy Rash/Hives Verified 06/16/24 18:21 [From Keflex] morphine Allergy Rash/Hives Verified 06/16/24 18:21 Penicillins Allergy Rash/Hives Verified 06/16/24 18:21 Physical Exam Vitals: Vital Signs Temp Pulse Resp BP Pulse Ox 06/16/24 13:45 78 16 112/65 98 06/16/24 12:27 67 15 99/43 96 06/16/24 11:05 98 F 82 18 149/83 99 Intake and Output 06/16/24 06/16/24 06/16/24 06:59 14:59 22:59 Other: Weight 81.647 kg General appearance: alert, in no apparent distress Head exam: Present: normocephalic Neck exam: Present: normal inspection Respiratory exam: Present: normal lung sounds bilaterally. Absent: chest wall tenderness Cardiovascular Exam: Present: regular rate, normal rhythm, normal heart sounds Peripheral pulses: 2+: Radial (R), Radial (L), Dorsalis Pedis (R), Dorsalis Ped is (L) GI/Abdominal exam: Present: soft. Absent: tenderness Extremities exam: Present: normal inspection. Absent: pedal edema, calf tenderness Neurological exam: Present: alert Psychiatric exam: Present: normal affect, normal mood Skin exam: Present: normal color Results CBC & Chem 7: 06/17/24 05:28 06/17/24 05:28 Labs: Abnormal Lab Results - Last 24 Hours (Table) 06/16/24 06/16/24 Range/Units 11:42 11:42 D-Dimer 0.82 H (<0.60) mg/L FEU Glucose 161 H (74-99) mg/dL Alkaline Phosphatase 149 H (38-126) U/L Lipase 301 H (23-300) U/L Assessment and Plan Assessment: 1. Chest pain rule out acute coronary syndrome -Patient received aspirin in ED; continue home dose of Lipitor, metoprolol and Plavix -Patient will be admitted to telemetry; monitor EKG trend troponin -Recommend 2D echo -Consult cardiology; prescient recommendations 2. Elevated lipase; doubt acute pancreatitis; possibly related to Ozempic use which is placed on hold -We will repeat lipase levels; start patient on Protonix 3. Hypertension; continue home dose of lisinopril 10 mg daily; metoprolol 25 mg daily; Aldactone 12.5 mg daily 4. Hyperlipidemia; Lipitor 40 mg p.o. nightly 5. Diabetes mellitus; patient takes Ozempic which is placed on hold; we will monitor Accu-Cheks q. CHS with insulin sliding scale DVT prophylaxis; SCDs CODE STATUS; full code
--- NOTE | 2024-06-17 17:45 | P.PN ---
Subjective Progress Note Date: 06/17/24 69-year-old female, history of hypertension, hyperlipidemia, diabetes mellitus, history of PE, present to the emergency department with concerns with chest discomfort. Onset of symptoms was less than an hour ago. Discomfort is somewhat severe rated 8/10. Discomfort feels like indigestion in her lower chest. Patient states there may be minimal associated dyspnea. No nausea. No diaphoresis. Patient did have similar symptoms beginning of the year and was told she did have a heart attack however there was no blockage and heart catheterization. Patient states discomfort this time is worse than it was previously. No calf pain or leg swelling. Blood work completed in ED reveals WBC of 8.9, hemoglobin of 14.1 and platelet count of 302, sodium 139, potassium 4.1, BUNs/creatinine of 12/0.77, blood glucose of 161, troponin less than 0.012, BNP of 105, lipase of 301 Chest x-ray is negative for any acute cardiopulmonary process CTA of the chest was completed which does not reveal any PE --Patient has been evaluated by cardiology; recommending abdominal ultrasound for possible pancreatitis related to Ozempic use; repeat lipase level is within normal limits; doubt acute pancreatitis; ultrasound is ordered and pending -Patient is placed on Protonix -Further recommendations once ultrasound is completed Objective - Vital Signs Vital signs: Vital Signs Temp 98.2 F 06/17/24 07:00 Pulse 70 06/17/24 07:00 Resp 16 06/17/24 07:00 BP 117/55 06/17/24 07:00 Pulse Ox 99 06/17/24 07:00 FiO2 Intake & Output 06/16/24 06/17/24 06/17/24 18:59 06:59 18:59 Intake Total 100 Balance 100 Weight 81.647 kg 81.647 kg Intake: Oral 100 Other: # Voids 3 - Exam General appearance: alert, in no apparent distress Head exam: Present: normocephalic Neck exam: Present: normal inspection Respiratory exam: Present: normal lung sounds bilaterally. Absent: chest wall tenderness Cardiovascular Exam: Present: regular rate, normal rhythm, normal heart sounds Peripheral pulses: 2+: Radial (R), Radial (L), Dorsalis Pedis (R), Dorsalis Pedis (L) GI/Abdominal exam: Present: soft. Absent: tenderness Extremities exam: Present: normal inspection. Absent: pedal edema, calf tenderness Neurological exam: Present: alert Psychiatric exam: Present: normal affect, normal mood Skin exam: Present: normal color - Labs CBC & Chem 7: 06/17/24 05:28 06/17/24 05:28 Labs: Abnormal Lab Results - Last 24 Hours (Table) 06/16/24 06/16/24 06/17/24 Range/Units 11:42 20:27 05:28 MCHC (32.0-37.0) g/dL D-Dimer 0.82 H (<0.60) mg/L FEU Glucose 116 H (70-110) mg/dL POC Glucose (mg/dL) 128 H (70-110) mg/dL 06/17/24 Range/Units 05:28 MCHC 31.4 L (32.0-37.0) g/dL D-Dimer (<0.60) mg/L FEU Glucose (70-110) mg/dL POC Glucose (mg/dL) (70-110) mg/dL Assessment and Plan Assessment: 1. Chest pain rule out acute coronary syndrome -Patient received aspirin in ED; continue home dose of Lipitor, metoprolol and Plavix -Patient will be admitted to telemetry; monitor EKG trend troponin -Recommend 2D echo -Consult cardiology; prescient recommendations 2. Elevated lipase; doubt acute pancreatitis; possibly related to Ozempic use which is placed on hold -We will repeat lipase levels; start patient on Protonix 3. Hypertension; continue home dose of lisinopril 10 mg daily; metoprolol 25 mg daily; Aldactone 12.5 mg daily 4. Hyperlipidemia; Lipitor 40 mg p.o. nightly 5. Diabetes mellitus; patient takes Ozempic which is placed on hold; we will monitor Accu-Cheks q. CHS with insulin sliding scale DVT prophylaxis; SCDs CODE STATUS; full code
[2024-06-17] MEDS: INSULIN ASPART (NovoLOG) 100 UNIT/ML VIAL SQ ONE (18:05)
[2024-06-17 20:11] LABS: Glucose,Whole Blood 97 mg/dL (70-110)
[2024-06-17] MEDS: INSULIN ASPART (NovoLOG) 100 UNIT/ML VIAL SQ SCH (21:20)
[2024-06-17] MEDS: ATORVASTATIN 40 MG TAB PO SCH (21:35)
[2024-06-18 05:39] LABS: Glucose,Whole Blood 102 mg/dL (70-110)
[2024-06-18 07:39] VITALS: BP 120/67; PULSE 74; RESP 16; TEMP 97.6
--- NOTE | 2024-06-18 08:02 | P.PN ---
Subjective Progress Note Date: 06/18/24 HISTORY OF PRESENTING ILLNESS: 69-year-old female known to Dr. Bowden. In May 2024 she presented to the hospital because of substernal chest pressure. During that admission she was noticed to have elevated troponin with an uptrending pattern with peak troponin of 5.85. She also had frequent PVCs but no sustained VT's. She had echocardiogram which showed an EF of 40 to 45%. 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 For this she was scheduled for a heart catheterization procedure which did not show any significant obstructive coronary artery disease other than mild to moderate disease in LAD territory which was non obstructive. This time she presents to the hospital because of epigastric pain and lower chest pain which was radiating to her back and left breast area. It is somewhat reproducible on palpation. Her troponins were not elevated she had elevated lipase level but normal malaise and her ALP was elevated. She is on Ozempic for diabetes and weight loss. She does have prior history of pancreatitis in the past. Her D-dimer was slightly elevated for which she had a CTA chest done which did not show evidence of PE or any acute lung pathology. Triglycerides 79, total cholesterol 122, LDL 60, HDL 45 Lipase 301, Amylase 149 06/18 Patient seen and examined. He was recommended yesterday for GI workup for the patient but this can be done as an outpatient which is what patient is hoping for. Pain is in the epigastric area. Blood pressure 120/67, heart rate 74, pulse ox 100% on room air. PHYSICAL EXAMINATION: Neck: Brisk carotid upstroke, no jugular venous distention. Lungs: Clear to auscultation. Heart: Regular rate and rhythm, S1-S2, , no murmur or rub. Abdomen: Soft nontender, positive bowel sounds. Tenderness on palpation in epigastric area with a reproducible pain. Extremities: No edema, intact distal pulses. Neuro: Alert, oritented, no focal deficits. Detailed neuro exam was not performed. ASSESSMENT: # Epigastric pain, reproducible on palpation likely pancreatitis # Atypical chest pain, like more likely noncardiac # Recent troponin elevation, likely myocarditis related. Cannot rule out MINOCA # Type II NSTEMI # Dyslipidemia # Coronary artery calcification PLAN: Continue aspirin, Plavix for 6 months from May. Continue Lipitor 40, lisinopril 10, metoprolol 25 mg, Aldactone 12.5 mg daily. She cannot afford Jardiance and she had genitourinary fungal infection. I would hold her Ozempic and would not resume it on discharge. I would request GI evaluation which can be done as an outpatient Patient is cleared for discharge from cardiology perspective. Patient may follow-up in the office with Dr. Bowden in 2 weeks. Cardiology will sign off this case and follow on an as-needed basis. Please reconsult for any new concerns. Nurse practitioner note has been reviewed, I agree with documented findings and plan of care. Patient was seen and examined. Objective - Vital Signs Vital signs: Vital Signs Temp 97.3 F L 06/18/24 01:51 Pulse 62 06/18/24 01:51 Resp 18 06/18/24 01:51 BP 104/62 06/18/24 01:51 Pulse Ox 98 06/18/24 01:51 FiO2 Intake & Output 06/17/24 06/18/24 06/18/24 18:59 06:59 18:59 Intake Total 100 Balance 100 Intake: Oral 100 Other: # Voids 2 2 - Labs CBC & Chem 7: 06/17/24 05:28 06/17/24 05:28 Labs: Abnormal Lab Results - Last 24 Hours (Table) 06/17/24 06/17/24 06/17/24 Range/Units 05:28 05:28 17:18 MCHC 31.4 L (32.0-37.0) g/dL Glucose 116 H (70-110) mg/dL POC Glucose (mg/dL) 202 H (70-110) mg/dL
--- NOTE | 2024-06-18 08:47 | P.DS ---
Providers Date of admission: 06/16/24 14:10 Attending physician: Tello Best Consults: 06/16/24 14:10 Consult Physician Urgent Consulting Provider: Helio Bowden Consult Reason/Comments: cp Do you want consulting provider notified?: Yes Primary care physician: Tello Best - Discharge Diagnosis(es) (1) Chest pain Current Visit: Yes Status: Acute (2) Diabetes mellitus Current Visit: No Status: Acute (3) HTN (hypertension) Current Visit: No Status: Acute (4) History of CVA (cerebrovascular accident) Current Visit: No Status: Acute (5) Hyperlipemia Current Visit: No Status: Acute Hospital Course: This is a 69-year-old female who presented to the emergency department with complaints of epigastric pain and lower chest pain that was radiating to her back and left breast. Pain was somewhat reproducible on palpation. Her troponins were negative however lipase was elevated and ALP was elevated. Patient does have a history of pancreatitis in the past. She was seen and evaluated by cardiology who is recommending an outpatient follow-up with GI and discontinuing Ozempic. Abdominal ultrasound was negative. Patient seen this morning resting comfortably in bed. She is tolerating diet. Her vitals are stable. Will discharge her today and have her follow-up in our office in 1 week. Will discontinue Ozempic for now and at patient's follow-up discuss other options. It is noted she has not been able to tolerate jardiance in the past due to side effects. Patient seen and evaluated by nurse practitioner, physician in agreement with plan. Patient Condition at Discharge: Fair Plan - Discharge Summary New Discharge Prescriptions: Continue Atorvastatin [Lipitor] 40 mg PO HS Clopidogrel [Plavix] 75 mg PO DAILY Aspirin EC [Ecotrin] 325 mg PO DAILY Nitroglycerin Sl Tabs [Nitrostat] 0.4 mg SUBLINGUAL Q5M PRN #50 tab PRN Reason: Chest Pain Spironolactone [Aldactone] 12.5 mg PO DAILY lisinopriL [Zestril] 10 mg PO DAILY Metoprolol Succinate (ER) [Toprol XL] 25 mg PO DAILY #30 tab Discontinued Semaglutide [Ozempic] 2 mg SQ TU Discharge Medication List Atorvastatin [Lipitor] 40 mg PO HS 11/15/14 [History] Clopidogrel [Plavix] 75 mg PO DAILY 01/27/18 [History] Aspirin EC [Ecotrin] 325 mg PO DAILY 02/12/19 [History] lisinopriL [Zestril] 10 mg PO DAILY 05/02/24 [History] Metoprolol Succinate (ER) [Toprol XL] 25 mg PO DAILY #30 tab 05/04/24 [Rx] Nitroglycerin Sl Tabs [Nitrostat] 0.4 mg SUBLINGUAL Q5M PRN #50 tab 05/04/24 [Rx] Spironolactone [Aldactone] 12.5 mg PO DAILY 06/16/24 [History] Follow up Appointment(s)/Referral(s): Helio Bowden MD [Medical Doctor] - 2 Weeks Tello Best MD [Primary Care Provider] - 1 Week Discharge Disposition: HOME SELF-CARE
[2024-06-18] MEDS ORDERED: PANTOPRAZOLE 40 MG TABLET PO SCH (21:00)
== END 2024-06-18 09:02 | disposition home or self-care (01) ==
LOC: EC 10:59 → 6NMEDSUR 14:10
PROVIDERS: ADMIT Family Medicine; ATTEND Family Medicine
DX: R07.89 Other chest pain (principal); I10 Essential (primary) hypertension; E11.9 Type 2 diabetes mellitus without complications; I49.3 Ventricular premature depolarization; I25.10 Atherosclerotic heart disease of native coronary artery without angina pectoris; E78.5 Hyperlipidemia, unspecified; R74.8 Abnormal levels of other serum enzymes; R10.13 Epigastric pain; I25.2 Old myocardial infarction; R79.89 Other specified abnormal findings of blood chemistry; Z79.02 Long term (current) use of antithrombotics/antiplatelets; Z79.82 Long term (current) use of aspirin; Z79.85 Long-term (current) use of injectable non-insulin antidiabetic drugs; Z79.899 Other long term (current) drug therapy; Z88.0 Allergy status to penicillin; Z88.1 Allergy status to other antibiotic agents; Z88.5 Allergy status to narcotic agent; Z87.891 Personal history of nicotine dependence; Z86.711 Personal history of pulmonary embolism; Z87.19 Personal history of other diseases of the digestive system; Z86.73 Personal history of transient ischemic attack (TIA), and cerebral infarction without residual deficits
CPT/HCPCS: 96376; 96374; 99285; 36415; 93005; 85379; 83880; 80061; 80053; 80048; 82150; 83690 ×2; 83735; 84484; 85025 ×2; 85610; 85730; 71046; 76705; 71275; G0378 ×3; Q9967; J2470

== ENCOUNTER → 2024-09-11 | Outpatient (CLI) | payer MEDICARE, OTHER ==
[2024-09-11 09:35] LABS: ALT 17 U/L (4-34); AST 23 U/L (14-36); African American GFR (CKD) 78 (>60 ml/min/1.73 sqM); Albumin 3.9 g/dL (3.5-5.0); Albumin/Globulin Ratio 1.3; Alkaline Phosphatase 107 U/L (38-126); Anion Gap 6 mmol/L; Blood Urea Nitrogen 14 mg/dL (7-17); Calcium 9.4 mg/dL (8.4-10.2); Carbon Dioxide 27 mmol/L (22-30); Chloride 107 mmol/L (98-107); Glucose 182 mg/dL (74-99); Non-African American GFR(CKD) 67 (>60 ml/min/1.73 sqM); Potassium 4.1 mmol/L (3.5-5.1); Sodium 140 mmol/L (137-145); Total Bilirubin 0.8 mg/dL (0.2-1.3); Total Protein 6.9 g/dL (6.3-8.2)
[2024-09-11 09:40] LABS: NT-Pro-B-Type Natriuretic Pept 125 pg/mL
[2024-09-11 15:58] LABS: HCT 41.3 % (37.2-46.3); HGB 13.2 g/dL (12.0-15.0); MCH 30.2 pg (27.0-32.0); MCV 94.5 FL (80.0-97.0); Mean Platelet Volume 10.9 FL (9.5-12.2); NRBC Per 100 WBC 0 X 10*3/uL (0.00-0.01); Platelet Count 284 X 10*3/uL (140-440); RBC 4.37 X 10*6/uL (4.10-5.20); RDW 13.9 % (11.5-14.5); WBC 7.97 X 10*3/uL (4.50-10.00)
[2024-09-11 22:07] LABS: Chol/HDL Ratio 2.82 Ratio; LDL Cholesterol,Calculated 68.3 mg/dL (0.0-131.0); VLDL Calculation 18.16 mg/dL (5.00-40.00)
== END | disposition home or self-care (01) ==
LOC: LABWHC1 08:55
PROVIDERS: ATTEND Student in an Organized Health Care Education/Training Program
DX: I50.9 Heart failure, unspecified (principal); E11.9 Type 2 diabetes mellitus without complications; E78.5 Hyperlipidemia, unspecified; E03.9 Hypothyroidism, unspecified; D72.9 Disorder of white blood cells, unspecified; R79.89 Other specified abnormal findings of blood chemistry
CPT/HCPCS: 36415; 80053; 80061; 83036; 83880; 84443; 85027